=== PATIENT | female | born 1980 | race Caucasian/White ===

== ENCOUNTER 2020-09-27 20:32 | Emergency (ER) | payer OTHER, SELFPAY ==
--- NOTE | ~2020-09-27 | US_ITS ---
EXAMINATION: US VENOUS ULTRASOUND WITH DOPPLER LOWER EXTREMITY, LEFT CLINICAL INFORMATION: Increased swelling with calf pain. COMPARISON: None TECHNIQUE: Ultrasound of the deep veins is performed from the hip to the calf with compression sonography and color and pulse Doppler assessment. Spectral analysis with color-flow imaging is performed. FINDINGS: There is normal venous compression and respiratory variation and augmented flow. The visualized common femoral vein, superficial femoral vein, profunda femoral vein, popliteal vein, and the trifurcation region shows no evidence of deep venous thrombosis. There is no significant popliteal fossa cyst. If the patient's symptoms persist, followup ultrasound in 5 days 7 days might be of value to exclude proximal propagation from a non-visualized calf vein. US/US venous duplex LE LT IMPRESSION: No DVT demonstrated in the left lower extremity.
--- NOTE | ~2020-09-27 | XR_ITS ---
EXAMINATION: XR CHEST CLINICAL INFORMATION: Hypertension COMPARISON: None TECHNIQUE: Frontal view of the chest was obtained. FINDINGS: Low lung volumes. No focal consolidation or mass. Normal pulmonary vascularity. No pleural effusion or pneumothorax. Normal heart size given the low lung volumes and AP portable technique. No acute osseous abnormality. XR/XR chest 1V IMPRESSION: Low lung volumes.
[2020-09-27 20:32] VITALS: BP 203/104; PULSE 101; RESP 20; TEMP 37.1; O2SAT 97; BMI 47.7
[2020-09-27 20:41] VITALS: BP 245/108
[2020-09-27 20:42] VITALS: BP 203/104
[2020-09-27 21:14] LABS: MANUAL DIFF FLAG NO
[2020-09-27 21:16] LABS: Basophils Percent Auto 0.3 % (0-2); Eosinophils Percent Auto 0.1 % (0-4); Hematocrit 42.7 % (37-47); Hemoglobin 14.3 g/dl (12.0-16.0); Imm Gran Abs Auto 0.05 X10*3/uL (0.00-0.03); Imm Gran Pct Auto 0.6 % (0.0-0.4); Lymphocytes Absolute Auto 2.9 X10*3/uL (1.2-4.9); Lymphocytes Percent Auto 33.8 % (20-40); Mean Corpuscular HGB Conc 33.5 g/dl (31.0-35.0); Mean Corpuscular Hemoglobin 27.3 pg (27.0-33.0); Mean Corpuscular Volume 81.6 fL (80-98); Mean Platelet Volume 9.8 fL (9.4-12.3); Monocytes Absolute Auto 0.7 X10*3/uL (0.1-1.2); Monocytes Percent Auto 7.6 % (2-11); Neutrophils Percent Auto 57.6 % (45-73); Platelet Count 247 X10*3/uL (160-400); Red Blood Count 5.23 X10*6/uL (4.20-5.50); Red Cell Distribution Width 13.2 % (11.0-16.0); White Blood Count 8.7 X10*3/uL (4.8-10.8)
--- NOTE | 2020-09-27 21:20 | ECG_ITS ---
Test Reason : HIGH BLOOD PRESSURE Blood Pressure : / mmHG Vent. Rate : 086 BPM Atrial Rate : 086 BPM P-R Int : 160 ms QRS Dur : 088 ms QT Int : 372 ms P-R-T Axes : 041 -14 010 degrees QTc Int : 445 ms Normal sinus rhythm Moderate voltage criteria for LVH, may be normal variant Borderline ECG No previous ECGs available Referred By: Mere Sanchez Electronically Signed By:JERO HARGROVE MD
--- NOTE | 2020-09-27 21:28 | ED_ITS ---
HPI - General Adult General Chief complaint: General Medical Stated complaint: High blood pressure Time Seen by Provider: 09/27/20 21:20 Source: patient Mode of arrival: ambulatory History of Present Illness HPI narrative: 40-year-old female presents as a referral from Urgent Care after she was seen for pain tingling into left lower extremity for 4 days with increased swelling but denies any recent travel, palpitations, fevers and report s that she was short of breath at baseline and noted at that time to have an elevated blood pressure for which she denies any associated chest pain/visual disturbances/speech disturbances. She states that has been long time since she seen a primary care provider because she was involved with caring for her mother. Related Data Previous Rx's Medication Instructions Recorded hydrochlorothiazide 25 mg PO DAILY 30 Days #30 tab 09/27/20 Allergies Allergy/AdvReac Type Severity Reaction Status Date / Time codeine Allergy Intermediate Hives Verified 09/27/20 20:46 acetaminophen [Tylenol] Allergy Unknown Unknown Verified 09/27/20 20:45 Review of Systems Review of Systems: Pertinent positives and negatives as stated in HPI 10 point review systems is otherwise negative. PMFSH Past Medical History Source: nursing notes reviewed Medical History Anxiety Depression Hypertension Obesity PTSD (post-traumatic stress disorder) Sciatica Social History Social History Advance Directives: No Advance Directives Information Provided: No Physical Exam Vital Signs: Vital Signs: Last Vital Signs Temp 97.9 F 09/27/20 22:28 Pulse 87 09/27/20 22:28 Resp 18 09/27/20 22:28 BP 186/114 H 09/27/20 22:28 Pulse Ox 98 09/27/20 22:28 Body Mass Index 47.7 VITAL SIGNS: Reviewed. GENERAL: Well developed, well nourished, in no acute distress. HEAD: Normocephalic/atraumatic, EYES: PERRLA, EOMI NOSE: Nares patent bilateral OROPHARYNX: no oral lesions noted, posterior pharynx clear NECK: Supple, no adenopathy LUNGS: Normal breath sounds. No adventitious sounds or accessory muscle use. SpO2<97> CARDIOVASCULAR: Regular rate and rhythm without noted murmurs ABDOMEN: Obese, Soft, non-tender, non-distended with bowel sounds. MUSCULOSKELETAL: No tenderness, deformities, or effusions noted on gross inspection. EXTREMITIES: Slight observed increase in lower extremity circumference on the left when compared to right, posterior calf discomfort on palpation, no palpable cords, no erythema NEUROLOGIC: Alert and oriented x 4. Strength and sensation to light touch were grossly intact x 4. Course Course Course Narrative: 40-year-old female with history and clinical presentation suggestive possible DVT, low clinical suspicion for PE and hypertension secondary to lack of medications. No evidence to suggest end-organ damage from hypertension at this time. Review of all investigations there are no acute findings, specifically no evidence of DVT and left lower extremity and likely an IT band versus possible sciatica given location pain. All results and findings were discussed with the patient bedside and on re-evaluation of blood pressure after receiving hydrochlorothiazide 25 mg there is noted improvement. Patient will be discharged with a prescription for hydrochlorothiazide and strict instructions to follow up with the primary care provider within the next 1-2 days for further outpatient management. Medical Decision Making Lab Data Result diagrams: 09/27/20 21:05 09/27/20 21:05 Labs: Lab Results 09/27/20 09/27/20 09/27/20 Range/Units 21:05 21:05 21:05 WBC 8.7 (4.8-10.8) X10*3/uL RBC 5.23 (4.20-5.50) X10*6/uL Hgb 14.3 (12.0-16.0) g/dl Hct 42.7 (37-47) % MCV 81.6 (80-98) fL MCH 27.3 (27.0-33.0) pg MCHC 33.5 (31.0-35.0) g/dl RDW 13.2 (11.0-16.0) % Plt Count 247 (160-400) X10*3/uL MPV 9.8 (9.4-12.3) fL Immature Gran % (Auto) 0.6 H (0.0-0.4) % Neut % (Auto) 57.6 (45-73) % Lymph % (Auto) 33.8 (20-40) % [place] % (Auto) 7.6 (2-11) % Eos % (Auto) 0.1 (0-4) % Baso % (Auto) 0.3 (0-2) % Lymph # (Auto) 2.9 (1.2-4.9) X10*3/uL [place] # (Auto) 0.7 (0.1-1.2) X10*3/uL Eos # (Auto) 0.0 (0.0-0.4) X10*3/uL Baso # (Auto) 0.0 (0.0-0.2) X10*3/uL Abs Immat Gran (auto) 0.05 H (0.00-0.03) X10*3/uL Absolute Neuts (auto) 5.0 (2.0-8.3) X10*3/uL Absolute Nucleated RBC 0.000 (0.0-0.012) X10*3/uL Nucleated RBC % (auto) 0.0 (0.0-0.2) /100WBC Hold Purple Top SEE NOTE Hold Blue Top Sodium 138 (135-145) mmol/L Potassium 4.4 (3.3-5.1) mmol/L Chloride 103 (96-108) mmol/L Carbon Dioxide 27 (22-29) mmol/L Anion Gap 12 (12-20) BUN 14 (9-16) mg/dL Creatinine 1.25 (0.5-1.4) mg/dL Estim Creat Clear Calc 85.4 Estimated GFR 47 Random Glucose 202 H (60-115) mg/dL Calcium 9.6 (8.4-10.2) mg/dL Magnesium 1.8 (1.6-2.6) mg/dL Total Bilirubin 0.3 (0.0-1.0) mg/dL Direct Bilirubin < 0.2 (0.0-0.5) mg/dL AST 18 (5-31) U/L ALT 20 (0-31) U/L Alkaline Phosphatase 58 (39-117) U/L Troponin I High Sens (<3.5-17.0) ng/L Total Protein 6.7 (6.5-8.0) g/dL Albumin 4.0 (3.5-5.0) g/dL Urine Test (NEGATIVE) 09/27/20 09/27/20 09/27/20 Range/Units 21:05 21:05 21:37 WBC (4.8-10.8) X10*3/uL RBC (4.20-5.50) X10*6/uL Hgb (12.0-16.0) g/dl Hct (37-47) % MCV (80-98) fL MCH (27.0-33.0) pg MCHC (31.0-35.0) g/dl RDW (11.0-16.0) % Plt Count (160-400) X10*3/uL MPV (9.4-12.3) fL Immature Gran % (Auto) (0.0-0.4) % Neut % (Auto) (45-73) % Lymph % (Auto) (20-40) % [place] % (Auto) (2-11) % Eos % (Auto) (0-4) % Baso % (Auto) (0-2) % Lymph # (Auto) (1.2-4.9) X10*3/uL [place] # (Auto) (0.1-1.2) X10*3/uL Eos # (Auto) (0.0-0.4) X10*3/uL Baso # (Auto) (0.0-0.2) X10*3/uL Abs Immat Gran (auto) (0.00-0.03) X10*3/uL Absolute Neuts (auto) (2.0-8.3) X10*3/uL Absolute Nucleated RBC (0.0-0.012) X10*3/uL Nucleated RBC % (auto) (0.0-0.2) /100WBC Hold Purple Top Hold Blue Top SEE NOTE Sodium (135-145) mmol/L Potassium (3.3-5.1) mmol/L Chloride (96-108) mmol/L Carbon Dioxide (22-29) mmol/L Anion Gap (12-20) BUN (9-16) mg/dL Creatinine (0.5-1.4) mg/dL Estim Creat Clear Calc Estimated GFR Random Glucose (60-115) mg/dL Calcium (8.4-10.2) mg/dL Magnesium (1.6-2.6) mg/dL Total Bilirubin (0.0-1.0) mg/dL Direct Bilirubin (0.0-0.5) mg/dL AST (5-31) U/L ALT (0-31) U/L Alkaline Phosphatase (39-117) U/L Troponin I High Sens < 3.5 (<3.5-17.0) ng/L Total Protein (6.5-8.0) g/dL Albumin (3.5-5.0) g/dL Urine Test NEGATIVE (NEGATIVE) ECG Data Attestation: I personally reviewed and interpreted this ECG as follows: Prior ECG tracings: not available for review Interpretation: Normal sinus rhythm, HR-86, no evidence of acute ischemia, ME/QRS/QTC are within normal limits. Discharge Plan Discharge Clinical Impression: Hypertension, Iliotibial band syndrome affecting left lower leg Patient Disposition: Home, Self-Care Instructions: Low-Sodium Diet (ED), Hypertension (ED), Iliotibial Band Syndrome (ED) Additional Instructions: IT band: 1. Tylenol 1000 mg, orally, every 6 hours as needed for pain control. Do not exceed 4000 mg within 24 hours. 2. Ibuprofen 400 mg, orally with milk or food, every 6 hours as needed for pain control. 3. Recommend reviewing IT band stretching exercises that may provide additional symptom relief. Hypertension: 1. You have been provided with a 1 month supply of hydrochlorothiazide 25 mg to be taken as directed on the outside packaging. 2. Please follow-up with your primary care provider for re-evaluation in the next 1-2 days. Do not hesitate to return to the emergency department should you develop any acute worsening of your symptoms. Prescriptions: New hydrochlorothiazide 25 mg tablet 25 mg PO DAILY 30 Days Qty: 30 RF: 0 Referrals: Physician,None [Primary Care Provider] - 2 days
[2020-09-27] MEDS: hydroCHLOROthiazide 25 MG TABLET PO (21:36)
[2020-09-27 21:41] LABS: Alanine Aminotransferase 20 U/L (0-31); Alkaline Phosphatase 58 U/L (39-117); Anion Gap 12 (12-20); Aspartate Amino Transferase 18 U/L (5-31); Bilirubin Direct < 0.2 mg/dL (0.0-0.5); Bilirubin Total 0.3 mg/dL (0.0-1.0); Blood Urea Nitrogen 14 mg/dL (9-16); Calcium 9.6 mg/dL (8.4-10.2); Carbon Dioxide 27 mmol/L (22-29); Chloride 103 mmol/L (96-108); Creatinine Clr Calc Pharmacy 85.4; Estimated Glomerular Filt Rate 47; Glucose Random 202 mg/dL (60-115); Potassium 4.4 mmol/L (3.3-5.1); Sodium 138 mmol/L (135-145); Total Protein 6.7 g/dL (6.5-8.0)
[2020-09-27 21:53] LABS: UPreg QC Valid YES; Urine Pregnancy NEGATIVE (NEGATIVE)
[2020-09-27 21:57] LABS: Magnesium 1.8 mg/dL (1.6-2.6)
[2020-09-27 22:03] LABS: Troponin-I High Sensitivity < 3.5 ng/L (<3.5-17.0)
[2020-09-27 22:28] VITALS: BP 186/114; PULSE 87; RESP 18; TEMP 36.6; O2SAT 98
== END 2020-09-27 23:07 | disposition home or self-care (01) ==
PROVIDERS: Emergency Provider Student in an Organized Health Care Education/Training Program
DX: I10 Essential (primary) hypertension (principal); M76.32 Iliotibial band syndrome, left leg; M79.662 Pain in left lower leg
CPT/HCPCS: 36415; 71045; 80053; 80076; 81025; 82248; 83735; 84484; 85025; 93005; 93971; 99284

== ENCOUNTER 2022-01-02 09:34 | Emergency (ER) | payer OTHER, SELFPAY ==
[2022-01-02 09:44] VITALS: BP 218/120; PULSE 100; RESP 19; TEMP 36.6; O2SAT 98; BMI 47.2
[2022-01-02 11:17] LABS: Appearance Urine HAZY; Color Urine YELLOW; Glucose Urine UA 500 MG/DL (NEG); Leukocyte Esterase Urine NEG (NEG); Nitrite Urine NEG (NEG); Specific Gravity - Urine >= 1.030 (1.005-1.025); Urine Blood NEG (NEG); Urine Ketones NEG (NEG); Urine Protein NEG (NEG-TRACE)
[2022-01-02 11:20] LABS: UPreg QC Valid YES; Urine Pregnancy NEGATIVE (NEGATIVE)
[2022-01-02 12:03] LABS: Glucose, Whole Blood 304 mg/dL (60-115)
[2022-01-02] MEDS: lisinopriL 10 MG TABLET PO (12:25)
[2022-01-02] MEDS: hydroCHLOROthiazide 12.5 MG TABLET PO (12:25)
[2022-01-02] MEDS: metFORMIN HCl 500 MG TABLET PO ×2 (12:25→14:48)
[2022-01-02] MEDS: 0.9 % Sodium Chloride 1,000 ML 999 ML IVCONT (12:37)
[2022-01-02 12:42] LABS: MANUAL DIFF FLAG NO
[2022-01-02 12:44] LABS: Basophils Absolute Auto 0.1 X10*3/uL (0.0-0.2); Basophils Percent Auto 0.6 % (0-2); Eosinophils Absolute Auto 0.1 X10*3/uL (0.0-0.4); Eosinophils Percent Auto 1.8 % (0-4); Hematocrit 42.9 % (37.0-47.0); Hemoglobin 14.7 g/dl (12.0-16.0); Imm Gran Abs Auto 0.03 X10*3/uL (0.00-0.03); Imm Gran Pct Auto 0.4 % (0.0-0.4); Lymphocytes Absolute Auto 2.4 X10*3/uL (1.2-4.9); Lymphocytes Percent Auto 30.1 % (20-40); Mean Corpuscular HGB Conc 34.3 g/dl (31.0-35.0); Mean Corpuscular Hemoglobin 27.5 pg (27.0-33.0); Mean Corpuscular Volume 80.3 fL (80.0-98.0); Mean Platelet Volume 9.8 fL (9.4-12.3); Monocytes Absolute Auto 0.6 X10*3/uL (0.1-1.2); Monocytes Percent Auto 7.6 % (2-11); Neutrophils Absolute Auto 4.7 x10*3/uL (2.0-8.3); Neutrophils Percent Auto 59.5 % (45-73); Platelet Count 247 X10*3/uL (160-400); Red Blood Count 5.34 X10*6/uL (4.20-5.50); Red Cell Distribution Width 12.8 % (11.0-16.0); White Blood Count 7.9 X10*3/uL (4.8-10.8)
[2022-01-02 12:50] LABS: INTERNATIONAL NORM RATIO 0.9 (0.9-1.1); Prothrombin Time 10.1 SEC (10.0-13.1)
[2022-01-02 12:59] LABS: Acetone, serum QL Negative (Negative)
--- NOTE | 2022-01-02 13:04 | ED_ITS ---
HPI - Female Genitourinary General Chief complaint: Urogenital-Female Stated complaint: vaginal issues Time Seen by Provider: 01/02/22 11:05 Source: patient Mode of arrival: ambulatory Limitations: no limitations History of Present Illness HPI Narrative: 41-year-old female presenting to the ED with complaints of UTI symptoms for over a week which include burning upon urination with itchiness. Reports that she wa s on an antibiotic 3 days ago for UTI although no symptomatic relief. She reports that she is on blood pressure medication 10 mg of lisinopril and 12.5 mg of hydrochlorothiazide although she did not take this morning that is why her blood pressure is high. She also reports that she did not take her metformin this morning. She reports that she normally does not take her blood glucose level due to her primary care provider told her she did not have to. Patient has a past medical history of anxiety, depression, obesity, PTSD, hypertension, sciatica and diabetes. She denies being on any insulin. She denies a headache, fevers, dizziness, change in vision, nausea/vomiting, chest pain, shortness of breath, dyspnea on exertion, orthopnea, palpitations, paresthesias, abdominal pain, back pain, flank pain, hematuria, abnormal vaginal discharge, lesions/rash to vaginal rectal area, thoughts of STD's, diarrhea, constipation, black or bloody stools, or any other symptoms complaints or concerns at this time. MD elicited complaint: dysuria, UTI and genital itching Onset (ago): week(s) (1) Location of symptoms: external genitalia and vaginal Severity: moderate Female Urogenital Radiation: Non-Radiating Consistency: constant Vaginal discharge: none Vaginal bleeding: none Urinary symptoms: Dysuria, Urgency and Frequency Exacerbating factors: urination Relieving factors: none Associated symptoms: denies other symptoms Treatment prior to arrival: none Sexual activity: Yes Patient : No Related Data Previous Rx's Medication Instructions Recorded hydrochlorothiazide 25 mg tablet 25 mg PO DAILY 30 days #30 tabs 09/27/20 alcohol swabs (Alcohol Prep Pads) 1 pad topical TID glucose 01/02/22 monitoring before meals or twice daily #200 ea blood sugar diagnostic (FreeStyle #100 ea 01/02/22 Lite Strips) blood-glucose meter (FreeStyle #1 ea 01/02/22 Lite Meter kit) fluconazole 150 mg tablet 150 mg PO Q3D Candidiasis 01/02/22 (Diflucan) vaginitis infection 2 doses #2 tabs lancets 28 gauge (FreeStyle #100 ea 01/02/22 Lancets) metformin 1,000 mg tablet 1,000 mg PO BID diabetes #60 tabs 01/02/22 Allergies Allergy/AdvReac Type Severity Reaction Status Date / Time codeine Allergy Intermediate Hives Verified 09/27/20 20:46 acetaminophen [Tylenol] Allergy Unknown Unknown Verified 09/27/20 20:45 Review of Systems Review of Systems: Constitutional : No Fever, No Chills ENT/Mouth : No sore throat, No Rhinorrhea Eyes: No Eye Pain, No Redness Cardiovascular : No Chest Pain, No SOB Respiratory : No Cough, No Sputum, No Wheezing Gastrointestinal : No Nausea, No Vomiting, No Diarrhea, positive abdominal pain, Genitourinary : + Dysuria, + Urinary Frequency/urgency, + vaginal itching, No pelvic pain, No irregular bleeding Musculoskeletal : No Myalgias Skin : No rash Neuro : No Weakness, No Headache Psych : No Anxiety/Panic, No Depression Heme/Lymph: No bruising, No Lymphadenopathy Endocrine : + Polyuria, + Polydipsia Yes all other systems are reviewed and are negative [facility] Past Medical History Attestation statement: The following information was validated with the patient. Source: old records reviewed and nursing notes reviewed Medical History Anxiety Depression Hypertension Obesity PTSD (post-traumatic stress disorder) Sciatica Social History Social History Advance Directives: No Advance Directives Information Provided: No Patient : No Physical Exam Vital Signs: Vital Signs: Last Vital Signs Temp 98 F 01/02/22 09:44 Pulse 96 01/02/22 14:30 Resp 18 01/02/22 14:30 BP 161/89 H 01/02/22 14:30 Pulse Ox 99 01/02/22 14:30 O2 Del Method 01/02/22 14:30 BMI result Body Mass Index 47.2 vital signs have been reviewed as normal and appeared to be correct. Blood pr essure 218/120. Heart rate normal. Respiration rate normal. Temperature normal. Oxygen saturation normal. Appearance: Alert. Oriented X3. No acute distress. Head: Normal external exam. Normocephalic. Atraumatic. Eyes: PERRLA. EOMI. Conjunctiva and sclera normal. Eyelids normal. ENT: Pharynx normal. Uvula midline. Moist mucous membranes. No trismus noted. No drooling noted. No muffled voice noted. Neck: Normal inspection. Neck supple. FROM. No adenopathy. Thyroid Normal. No meningeal signs. No neck mass noted. CVS: Normal heart rate and rhythm. Heart sound normal. No murmurs noted. Pulses normal throughout. Respiratory: No respiratory distress. Painless inspiration. Breath sounds normal. No wheezes/rales/rhonchi noted. No accessory muscle usage noted or decreased air movement noted. Abdomen: Soft and nontender. Bowel sounds normal in all 4 quadrants. No distention noted. No organomegaly noted. No visible injury noted. : Supervised by MARIO Pena. Patient is noted to have valvular erythema/edema with superficial excoriations and cottage cheese like nonodorous discharge consistent with candidiasis vaginitis. No lacerations or lesions no dea. Patient has pain with speculum exam and discharge seen above otherwise no other acute processes noted. No foreign bodies noted. No vaginal laceration/lesions or active bleeding noted. No tissue present in vagina. No vaginal mass noted. No vaginal swelling noted. Normal appearance of cervix. Normal palpation of cervix. Cervical os is closed. No cervical lesion/mass. No Bartholin cyst noted. No cervical motion tenderness noted. Negative chandelier sign. Normal bimanual exam. Uterine size normal. Bladder normal to palpation. Uterine consistency normal. Normal cervical palpation. Uterine mobility normal. Uterine shape normal. Normal adnexa. Normal rectovaginal exam. Back: No CVA tenderness. Full range of motion noted. Skin: Skin warm and dry. Normal skin color. Normal skin turgor. No rashes/lesions/lacerations noted. Extremities: No lower extremity edema. Extremities exhibit normal range of motion. Extremities nontender. Neuro: Oriented X 3. No motor deficit. No sensory deficit. Reflexes normal. Course Course Course Narrative: 11:30am - 41-year-old female presenting to the ED with complaints of UTI symptoms for over a week which include burning upon urination with itchiness. Reports that she was on an antibiotic 3 days ago for UTI although no symptomatic relief. She reports that she is on blood pressure medication 10 mg of lisinopril and 12.5 mg of hydrochlorothiazide although she did not take this morning that is why her blood pressure is high. She also reports that she did not take her metformin this morning. She reports that she normally does not take her blood glucose level due to her primary care provider told her she did not have to. Patient has a past medical history of anxiety, depression, obesity, PTSD, hypertension, sciatica and diabetes. She denies being on any insulin. Plan: Patient had a UA in the waiting room and UA negative for UTI negative for although patient is noted to have 500 of glucose therefore at this time due to patient not taking her metformin will give her 500 mg of metformin and will check a POC and re-evaluate. Reevaluation(s) Reevaluation #1: - patient's POC 304 therefore at this time a line was placed and CBC/chemistry was order and patient's blood glucose level was elevated otherwise all other labs are within normal limits. Her hemoglobin A1c is 9.0. Acetone level is negative. - therefore at this time will treat for candidiasis vaginitis. Will send the patient home with glucose monitoring and strips along with alcohol pads. And I explained to the patient that she should check her blood sugars before every meal or at least twice a day. I also discussed this case with Dr. Sanchez and she agrees with my plan and she also recommended increasing the patient's metformin from 500 b.i.d. to a 1000 b.i.d.. I discussed this with the patient and she is comfortable about this. Will DC home with endocrinology referral and instructions to follow with PCP and to return if any new or worsening symptoms I also educated the patient on diet and exercise and the importance of taking her blood pressure medication and her diabetes medication every day so her blood pressure is not high and her blood sugars not high. She understands agrees with the plan. Time: 14:17 MDM - Female Genitourinary Medical Records Attestation: I reviewed the patient's medical records. Lab Data Attestation: I reviewed the patient's lab results. Result diagrams: 01/02/22 12:33 01/02/22 12:33 Labs: Lab Results 01/02/22 01/02/22 01/02/22 Range/Units 11:04 11:04 11:58 WBC (4.8-10.8) X10*3/uL RBC (4.20-5.50) X10*6/uL Hgb (12.0-16.0) g/dl Hct (37.0-47.0) % MCV (80.0-98.0) fL MCH (27.0-33.0) pg MCHC (31.0-35.0) g/dl RDW (11.0-16.0) % Plt Count (160-400) X10*3/uL MPV (9.4-12.3) fL Immature Gran % (Auto) (0.0-0.4) % Neut % (Auto) (45-73) % Lymph % (Auto) (20-40) % [place] % (Auto) (2-11) % Eos % (Auto) (0-4) % Baso % (Auto) (0-2) % Lymph # (Auto) (1.2-4.9) X10*3/uL [place] # (Auto) (0.1-1.2) X10*3/uL Eos # (Auto) (0.0-0.4) X10*3/uL Baso # (Auto) (0.0-0.2) X10*3/uL Abs Immat Gran (auto) (0.00-0.03) X10*3/uL Absolute Neuts (auto) (2.0-8.3) x10*3/uL Absolute Nucleated RBC (0.0-0.012) X10*3/uL Nucleated RBC % (auto) (0.0-0.2) /100WBC PT (10.0-13.1) SEC INR (0.9-1.1) Sodium (135-145) mmol/L Potassium (3.3-5.1) mmol/L Chloride (96-108) mmol/L Carbon Dioxide (22-29) mmol/L Anion Gap (12-20) BUN (9-16) mg/dL Creatinine (0.5-1.4) mg/dL Estim Creat Clear Calc Estimated GFR POC Glucose 304 H (60-115) mg/dL Random Glucose (60-115) mg/dL Estimat Average Glucose mg/dL Hemoglobin A1c % % Calcium (8.4-10.2) mg/dL Magnesium (1.6-2.6) mg/dL Total Bilirubin (0.0-1.0) mg/dL AST (5-31) U/L ALT (0-31) U/L Alkaline Phosphatase (39-117) U/L Total Protein (6.5-8.0) g/dL Albumin (3.5-5.0) g/dL Urine Color YELLOW Urine Appearance HAZY Urine pH 6.0 (5.0-8.0) Ur Specific [place] >= 1.030 H (1.005-1.025) Urine Protein NEG (NEG-TRACE) MG/DL Urine Glucose (UA) 500 H (NEG) MG/DL Urine Ketones NEG (NEG) MG/DL Urine Blood NEG (NEG) Urine Nitrite NEG (NEG) Ur Leukocyte Esterase NEG (NEG) Urine Test NEGATIVE (NEGATIVE) Acetone, Qual (Negative) 01/02/22 01/02/22 01/02/22 Range/Units 12:33 12:33 12:33 WBC 7.9 (4.8-10.8) X10*3/uL RBC 5.34 (4.20-5.50) X10*6/uL Hgb 14.7 (12.0-16.0) g/dl Hct 42.9 (37.0-47.0) % MCV 80.3 (80.0-98.0) fL MCH 27.5 (27.0-33.0) pg MCHC 34.3 (31.0-35.0) g/dl RDW 12.8 (11.0-16.0) % Plt Count 247 (160-400) X10*3/uL MPV 9.8 (9.4-12.3) fL Immature Gran % (Auto) 0.4 (0.0-0.4) % Neut % (Auto) 59.5 (45-73) % Lymph % (Auto) 30.1 (20-40) % [place] % (Auto) 7.6 (2-11) % Eos % (Auto) 1.8 (0-4) % Baso % (Auto) 0.6 (0-2) % Lymph # (Auto) 2.4 (1.2-4.9) X10*3/uL [place] # (Auto) 0.6 (0.1-1.2) X10*3/uL Eos # (Auto) 0.1 (0.0-0.4) X10*3/uL Baso # (Auto) 0.1 (0.0-0.2) X10*3/uL Abs Immat Gran (auto) 0.03 (0.00-0.03) X10*3/uL Absolute Neuts (auto) 4.7 (2.0-8.3) x10*3/uL Absolute Nucleated RBC 0.000 (0.0-0.012) X10*3/uL Nucleated RBC % (auto) 0.0 (0.0-0.2) /100WBC PT 10.1 (10.0-13.1) SEC INR 0.9 (0.9-1.1) Sodium 138 (135-145) mmol/L Potassium 4.4 (3.3-5.1) mmol/L Chloride 102 (96-108) mmol/L Carbon Dioxide 23 (22-29) mmol/L Anion Gap 17 (12-20) BUN 11 (9-16) mg/dL Creatinine 0.94 (0.5-1.4) mg/dL Estim Creat Clear Calc 111.8 Estimated GFR > 60 POC Glucose (60-115) mg/dL Random Glucose 313 H (60-115) mg/dL Estimat Average Glucose mg/dL Hemoglobin A1c % % Calcium 9.8 (8.4-10.2) mg/dL Magnesium 1.7 (1.6-2.6) mg/dL Total Bilirubin 0.3 (0.0-1.0) mg/dL AST 24 (5-31) U/L ALT 24 (0-31) U/L Alkaline Phosphatase 54 (39-117) U/L Total Protein 7.0 (6.5-8.0) g/dL Albumin 4.1 (3.5-5.0) g/dL Urine Color Urine Appearance Urine pH (5.0-8.0) Ur Specific [place] (1.005-1.025) Urine Protein (NEG-TRACE) MG/DL Urine Glucose (UA) (NEG) MG/DL Urine Ketones (NEG) MG/DL Urine Blood (NEG) Urine Nitrite (NEG) Ur Leukocyte Esterase (NEG) Urine Test (NEGATIVE) Acetone, Qual Negative (Negative) 01/02/22 01/02/22 Range/Units 12:33 14:33 WBC (4.8-10.8) X10*3/uL RBC (4.20-5.50) X10*6/uL Hgb (12.0-16.0) g/dl Hct (37.0-47.0) % MCV (80.0-98.0) fL MCH (27.0-33.0) pg MCHC (31.0-35.0) g/dl RDW (11.0-16.0) % Plt Count (160-400) X10*3/uL MPV (9.4-12.3) fL Immature Gran % (Auto) (0.0-0.4) % Neut % (Auto) (45-73) % Lymph % (Auto) (20-40) % [place] % (Auto) (2-11) % Eos % (Auto) (0-4) % Baso % (Auto) (0-2) % Lymph # (Auto) (1.2-4.9) X10*3/uL [place] # (Auto) (0.1-1.2) X10*3/uL Eos # (Auto) (0.0-0.4) X10*3/uL Baso # (Auto) (0.0-0.2) X10*3/uL Abs Immat Gran (auto) (0.00-0.03) X10*3/uL Absolute Neuts (auto) (2.0-8.3) x10*3/uL Absolute Nucleated RBC (0.0-0.012) X10*3/uL Nucleated RBC % (auto) (0.0-0.2) /100WBC PT (10.0-13.1) SEC INR (0.9-1.1) Sodium (135-145) mmol/L Potassium (3.3-5.1) mmol/L Chloride (96-108) mmol/L Carbon Dioxide (22-29) mmol/L Anion Gap (12-20) BUN (9-16) mg/dL Creatinine (0.5-1.4) mg/dL Estim Creat Clear Calc Estimated GFR POC Glucose 288 H (60-115) mg/dL Random Glucose (60-115) mg/dL Estimat Average Glucose 212 mg/dL Hemoglobin A1c % 9.0 % Calcium (8.4-10.2) mg/dL Magnesium (1.6-2.6) mg/dL Total Bilirubin (0.0-1.0) mg/dL AST (5-31) U/L ALT (0-31) U/L Alkaline Phosphatase (39-117) U/L Total Protein (6.5-8.0) g/dL Albumin (3.5-5.0) g/dL Urine Color Urine Appearance Urine pH (5.0-8.0) Ur Specific [place] (1.005-1.025) Urine Protein (NEG-TRACE) MG/DL Urine Glucose (UA) (NEG) MG/DL Urine Ketones (NEG) MG/DL Urine Blood (NEG) Urine Nitrite (NEG) Ur Leukocyte Esterase (NEG) Urine Test (NEGATIVE) Acetone, Qual (Negative) Critical Care Time Critical Care Time Critical Care Time: Yes Total Critical Care Time: 60 Attestation: I personally attest to this time spent taking care of the patient Discharge Plan Discharge Clinical Impression: Acute hyperglycemia, BP (high blood pressure), Diabetes, Suzi vaginitis Patient Disposition: Home, Self-Care Instructions: Diabetic Hyperglycemia (ED) Additional Instructions: You have pending lab results if any are positive you will be contacted. Prescriptions: New (DME) blood-glucose meter [FreeStyle Lite Meter] Kit See Rx Instructions .Route Qty: 1 0RF Rx Instructions: As directed (DME) FreeStyle Lite Strips Strip See Rx Instructions .Route Qty: 100 0RF Rx Instructions: As directed alcohol swabs [Alcohol Prep Pads] Pads, Medicated 1 pad topical TID Qty: 200 0RF (DME) lancets [FreeStyle Lancets] 28 gauge misc See Rx Instructions .Route Qty: 100 0RF Rx Instructions: As directed fluconazole [Diflucan] 150 mg tablet 150 mg PO Q3D 0 Days Qty: 2 1RF Rx Instructions: may repeat second dose 72 hrs after first dose if symptoms persist metformin 1,000 mg tablet 1,000 mg PO BID Qty: 60 0RF No Action hydrochlorothiazide 25 mg tablet 25 mg PO DAILY 30 Days Qty: 30 0RF Referrals: Chiara Lawson, [facility], [employer] [facility], [employer] [Primary Care Provider] - 2 days
[2022-01-02 13:09] LABS: Alanine Aminotransferase 24 U/L (0-31); Albumin Level 4.1 g/dL (3.5-5.0); Alkaline Phosphatase 54 U/L (39-117); Anion Gap 17 (12-20); Aspartate Amino Transferase 24 U/L (5-31); Bilirubin Total 0.3 mg/dL (0.0-1.0); Blood Urea Nitrogen 11 mg/dL (9-16); Calcium 9.8 mg/dL (8.4-10.2); Carbon Dioxide 23 mmol/L (22-29); Chloride 102 mmol/L (96-108); Creatinine Clr Calc Pharmacy 111.8; Estimated Glomerular Filt Rate > 60; Glucose Random 313 mg/dL (60-115); Magnesium 1.7 mg/dL (1.6-2.6); Potassium 4.4 mmol/L (3.3-5.1); Sodium 138 mmol/L (135-145)
[2022-01-02] MEDS: Acetaminophen 325 MG TABLET 975 MG PO (13:27)
[2022-01-02] MEDS: Fluconazole 150 MG TABLET PO (13:28)
[2022-01-02 13:35] LABS: Estimated Average Glucose 212 mg/dL
[2022-01-02 14:30] VITALS: BP 161/89; PULSE 96; RESP 18; O2SAT 99
[2022-01-02 14:38] LABS: Glucose, Whole Blood 288 mg/dL (60-115)
[2022-01-02 17:51] LABS: CT PCR NOT DETECTED (Not Detect.); NG PCR NOT DETECTED (Not Detect.)
[2022-01-04 08:34] LABS: BV Int Neg Control Negative (Negative); BV Int Pos Control Positive (Positive)
== END 2022-01-02 14:57 | disposition home or self-care (01) ==
PROVIDERS: Physician Assistant Medical; Emergency Provider Student in an Organized Health Care Education/Training Program; PCP Registered Nurse
DX: N76.0 Acute vaginitis (principal); E11.65 Type 2 diabetes mellitus with hyperglycemia; I10 Essential (primary) hypertension; E66.9 Obesity, unspecified; Z68.42 Body mass index [BMI] 45.0-49.9, adult
CPT/HCPCS: 36415; 80053; 81003; 81025; 82009; 82947; 83036; 83735; 85025; 85610; 87480; 87491; 87510; 87591; 87660; 96360; 99284

== ENCOUNTER 2023-02-14 15:02 | Outpatient (AMB) | payer OTHER, SELFPAY ==
[2023-02-14 15:10] VITALS: BP 142/110; BMI 50.0
--- NOTE | 2023-02-14 15:10 | MHC.PC.OV ---
Vital Signs 02/14/23 15:10 02/14/23 16:28 Height 5 ft 7 in Weight 319 lb BMI 50.0 BP 142/110 H 140/100 H Blood Pressure Location Lt brachial Lt brachial Position Sitting Sitting Intake Visit Reasons: LEGAL INTERNSHIP/HTN, Diabetes , Asthma Intake Note: New patient establishing care/ HTN, DM, Asthma Advertising Sales Agent Required: No Accompanied by: Self / Same As Patient Allergies codeine Allergy (Intermediate, Verified 02/14/23 15:34) Hives metformin Adverse Reaction (Severe, Verified 02/14/23 15:42) Diarrhea Medication List - Last Reconciled 02/14/23 by Oliva Gonzalez MD No Known Home Meds Tobacco use date assessed: 02/14/23 Dental Screening Dental Screen Date: 02/14/23 Did you have a dental visit in the last 12 months?: No Did you have a dental problem in the last 6 months where you did not have access to dental care?: No Was dental information given to patient?: Yes HPI HPI Comments History of Present Illness Details This is a 42-year-old female with hypertension, diabetes, morbid obesity and moderate major depression that comes today to establish care. Blood pressure elevated and she has use hydrochlorothiazide with metoprolol in the past. Blood pressure will be recheck by nurse navigator in 3 weeks. I will start her on NURIS-inhibitor. A1c elevated and has try metformin causing severe diarrhea. I will start her on Trulicity once a week. Will be referred to Endocrinology. She is morbidly obese with a BMI of 50 and will be referred to weight management. She is interested in weight loss surgery. Has moderate major depression for over 2 weeks with anxiety and difficulty sleeping. I will start her on low-dose escitalopram. No chest pain or shortness of breath. [facility] Medical History (Updated 02/14/23 @ 16:00 by Oliva Gonzalez MD) PTSD (post-traumatic stress disorder) Anxiety Depression Sciatica Obesity Hypertension Surgical History History of cholecystectomy History of pilonidal cyst History of Family History (Updated 02/14/23 @ 15:44 by Oliva Gonzalez MD) Mother Dementia Hypertension COPD (chronic obstructive pulmonary disease) Asthma Mental health disorder Diabetes mellitus Father Renal failure Substance use disorder Social History (Updated 02/14/23 @ 15:45 by Oliva Gonzalez MD) Housing: House Alcohol intake: current Alcohol intake frequency: holidays/special occasions only Alcohol type: hard liquor Patient Tobacco Use Status: Never used Tobacco e-Cigarette/Vaping Use: Never Used Second Hand Smoke Exposure: No service: No Current occupational status: employed Current occupational exposures/hazards: No Cognitive needs: No Hearing needs: No Vision needs: Yes Questionnaire PHQ-9 Over the last 2 weeks, how often have you been bothered by any of the following problems? 1. Little interest or pleasure in doing things: more than half the days 2. Feeling down, depressed, or hopeless: more than half the days 3. Trouble falling or staying asleep, or sleeping too much: more than half the days 4. Feeling tired or having little energy: nearly every day 5. Poor appetite or overeating: more than half the days 6. Feeling bad about yourself - or that you are a failure or have let yourself or your family down: nearly every day 7. Trouble concentrating on things, such as reading the newspaper or watching television: nearly every day 8. Moving or speaking so slowly that other people could have noticed. Or the opposite - being so fidgety or restless that you have been moving around a lot more than usual: nearly every day 9. Thoughts that you would be better off or of hurting yourself in some way: not at all Total score: 20 Depression Screening Interpretation: Positive (no suicidal thoughts) Depression Screening Follow-up: Existing condition 40664 - PHQ-9 Billing: Yes Source: Developed by Drs. Billy Curiel, Sharri Jacobo, Ramsey Luis and colleagues, with an educational darleen from [employer]. Thrive Questionnaire Date Thrive assessed: 02/14/23 I am a: Patient What is your living situation today?: I have a steady place to live Within the past 12 months, did the food you bought not last and you didn't have the money to get more?: Never true Within the past 12 months, did you worry whether your food would run out before you got money to buy more?: Never true Do you have trouble paying for medicines?: No Do you have trouble getting transportation to medical appointments?: No Do you have trouble paying your heating and electricity bill?: No Do you have trouble taking care of your child, family member or friend?: No Do you have trouble with day-to-day activities such as bathing, preparing meals, shopping, managing finances, etc.?: No Are you currently unemployed and looking for a job?: No Are you interested in more education?: No Please select the resources that you would like help with: None Currently or been in a relationship where the following occur: no concerns reported AUDIT C Alcohol Use Questionnaire (AUDIT-C) 1. How often do you have a drink containing alcohol?: Monthly or less 2. How many drinks containing alcohol do you have on a typical day when you are drinking?: 1 or 2 3. How often do you have six or more drinks on one occasion?: Never Total Score: 1 Score Reviewed/Action Taken: No KEVIN-7 AMB Questionnaire KEVIN-7 Date KEVIN - 7 assessed: 02/14/23 Feeling nervous, anxious, or on edge: 3 = Nearly every day Not being able to stop or control worryin = More than half the days Worrying too much about different things: 3 = Nearly every day Trouble relaxin = Nearly every day Being so restless that it is hard to sit still: 2 = More than half the days Becoming easily annoyed or irritable: 3 = Nearly every day Feeling afraid as if something awful might happen: 3 = Nearly every day Total KEVIN-7 score (0-4 normal; 5-9 mild; 10-14 moderate; 15-21 severe): 19 Source: Developed by Drs. Billy Curiel, Sharri Jacobo, Ramsey Luis and colleagues, with an educational darleen from [employer]. KEVIN-7 Assessment Billing KEVIN-7 Assessment Tool: KEVIN-7 Assessment 57458 Review of Systems Const All systems reviewed & are unremarkable except as noted in HPI and below Eyes Reports no additional complaints, Denies change in vision and Denies other visual disturbances Card Denies chest pain at rest, Denies chest pain with activity, Denies edema, Denies irregular heart rhythm, Denies claudication, Denies dyspnea, Denies dyspnea on exertion, Denies orthopnea, Denies paroxysmal nocturnal dyspnea and Denies slow heart rate Resp Denies cough, Denies dyspnea and Denies dyspnea on exertion GI Denies abdominal pain, Denies change in bowel habits, Denies excessive flatus, Denies nausea and Denies vomiting Denies urinary incontinence, Denies urinary hesitancy and Denies urinary urgency Musc Denies abnormal gait, Denies atrophy, Denies deformity and Denies limited range of motion Skin/Breast Denies bleeding lesions, Denies changing lesions and Denies rash Neuro Denies abnormal gait and Denies lack of coordination Physical exam (Primary Care) Vital Signs: Last Vital Signs BP 142/110 H 02/14/23 15:10 BMI result Body Mass Index 50.0 Tobacco/Smoking Status: Tobacco use Status Tobacco use date assessed 02/14/23 02/14/23 15:22 Patient Tobacco Use Status Never used Tobacco 02/14/23 15:45 e-Cigarette/Vaping Use Never Used 02/14/23 15:45 PHQ-9: PHQ-9 Score PHQ-9: Total score 02/14/23 15:53 Depression Screening Interpretation: Positive (no suicidal thoughts) Depression Screening Follow-up: Existing condition Thrive Assessment: Date of Thrive Assessment Date Thrive assessed 02/14/23 02/14/23 15:22 Currently or been in a relationship where the following occur: no concerns reported Eyes General: appearance normal, both eyes and all related structures Eyelids: Yes eyelids normal Conjunctivae: conjunctivae normal Neck Neck: Yes normal visual inspection and Yes supple Resp Effort & Inspection: normal respiratory effort Auscultation: clear to auscultation bilaterally Cardio Jugular venous distension: no JVD Rate: regular rate Rhythm: regular rhythm Heart sounds: S1 normal heart sound present and S2 normal heart sound present Extrem General: Yes full ROM Results AMB Hemoglobin A1c AMB Hemoglobin A1c 10.8 % Last Edit by PEYTON Dawson on 02/14/23 15:54 Results Reviewed Results Reviewed: Laboratory Last Values Hgb A1c (Clinic) 10.8 % (4.0-6.0) H 02/14/23 15:46 Assessment and Plan Assessment & Plan (1) Diabetes: Code(s): E11.9 - Type 2 diabetes mellitus without complications Plan: Start Trulicity. A1c goal is equal or less than 7%. Referred to Endocrinology. (2) Hypertension: Code(s): I10 - Essential (primary) hypertension Plan: Start lisinopril. Blood pressure goal is equal or less than 130/80. Blood pressure will be recheck in 3 weeks by nurse navigator. (3) Morbid obesity with BMI of 50.0-59.9, adult: Code(s): E66.01 - Morbid (severe) obesity due to excess calories; Z68.43 - Body mass index [BMI] 50.0-59.9, adult Plan: Referred to weight management. (4) Moderate major depression: Code(s): F32.1 - Major depressive disorder, single episode, moderate Plan: Start escitalopram at bedtime. Orders: Orders AMB Hemoglobin A1c Today E11.9 - Type 2 diabetes mellitus without complications Lipid Panel Today E78.5 - Hyperlipidemia, unspecified Microalbumin, Random (w Creat) Today E11.9 - Type 2 diabetes mellitus without complications Comprehensive [place]. Panel Fast Today E11.9 - Type 2 diabetes mellitus without complications Thyroid Stimulating Hormone Today E66.01 - Morbid (severe) obesity due to excess calories, Z68.43 - Body mass index [BMI] 50.0-59.9, adult Referrals Medical Weight Management Referral E66.01 - Morbid (severe) obesity due to excess calories, Z68.43 - Body mass index [BMI] 50.0-59.9, adult Endocrinology Referral E11.9 - Type 2 diabetes mellitus without complications Medications: New dulaglutide (Trulicity) 0.75 mg (0.5 mL) subcut QWEEK 2.5 mL 6RF 30 days E11.9 - Type 2 diabetes mellitus without complications escitalopram oxalate 5 mg PO BEDTIME 30 tabs 2RF 30 days F32.1 - Major depressive disorder, single episode, moderate lisinopril 10 mg PO DAILY 90 tabs 1RF 90 days I10 - Essential (primary) hypertension ondansetron HCl 8 mg PO Q12H PRN 10 tabs 0RF nausea and vomiting 5 days Coding Level of Care Code New Pt Level 4 (63165) Diagnoses Diabetes E11.9 Hypertension I10 Morbid obesity with BMI of 50.0-59.9, adult E66.01; Z68.43 Moderate major depression F32.1 Additional Codes KEVIN-7 Assessment Billing - KEVIN-7 Assessment Tool: KEVIN-7 Assessment 54383 ([id number]) Time Spent (min) 25
[2023-02-14 16:28] VITALS: BP 140/100
== END 2023-02-14 16:10 | disposition home or self-care (01) ==
PROVIDERS: PCP Internal Medicine; Visit Provider Internal Medicine
DX: E11.9 Type 2 diabetes mellitus without complications (principal); I10 Essential (primary) hypertension; E66.01 Morbid (severe) obesity due to excess calories; Z68.43 Body mass index [BMI] 50.0-59.9, adult; F32.1 Major depressive disorder, single episode, moderate
CPT/HCPCS: 83036; 99204

== ENCOUNTER 2023-02-25 08:58 | Outpatient (REF) | payer OTHER, SELFPAY ==
[2023-02-25 12:08] LABS: Creatinine Urine 276.18 mg/dL; Microalbum/Creatinine Ratio Ur 18.1 ug/mg cr (<30)
[2023-02-25 12:22] LABS: Alanine Aminotransferase 20 U/L (0-31); Albumin Level 3.8 g/dL (3.5-5.0); Alkaline Phosphatase 44 U/L (39-117); Anion Gap 11 (12-20); Aspartate Amino Transferase 18 U/L (5-31); Bilirubin Total 0.6 mg/dL (0.0-1.0); Blood Urea Nitrogen 9 mg/dL (9-16); Calcium 9.1 mg/dL (8.4-10.2); Carbon Dioxide 25 mmol/L (22-29); Chloride 105 mmol/L (96-108); Cholesterol 175 mg/dL (<200); Estimated Glomerular Filt Rate > 60; Glucose Fasting 183 mg/dL (60-99); HDL Cholesterol 36 mg/dL (>40); LDL Cholesterol Calculated 104 mg/dL (<100); Potassium 3.9 mmol/L (3.3-5.1); Sodium 137 mmol/L (135-145); Thyroid Stimulating Hormone 0.62 uIU/mL (0.32-4.0); Total Protein 6.6 g/dL (6.5-8.0); Triglycerides 178 mg/dL (<150)
== END 2023-02-25 08:59 | disposition home or self-care (01) ==
LOC: HO.HMGCLDS 08:58
PROVIDERS: PCP Internal Medicine; Visit Provider Internal Medicine
DX: E66.01 Morbid (severe) obesity due to excess calories (principal); E78.5 Hyperlipidemia, unspecified; E11.9 Type 2 diabetes mellitus without complications; Z68.43 Body mass index [BMI] 50.0-59.9, adult
CPT/HCPCS: 36415; 80053; 80061; 82043; 82570; 84443

== ENCOUNTER 2023-03-02 14:21 | Outpatient (REF) | payer OTHER, SELFPAY ==
[2023-03-02 16:19] LABS: Appearance Urine Clear; Color Urine Yellow; Glucose Urine UA Negative (Negative); Leukocyte Esterase Urine Negative (Negative); Nitrite Urine Negative (Negative); PH 5.5 (5.0-9.0); UMIC TRIGGER UACC YES; Urine Blood Small (1+) (Negative); Urine Ketones Negative (Negative); Urine Protein Negative (Neg-Trace)
[2023-03-02 16:36] LABS: Bacteria Urine None Seen (None Seen); Hyaline Casts Urine 0-2 /LPF (0-2); RBC Urine 0-2 /HPF (0-2); Squamous Epithelial Cell Urine 0-2 /HPF (0-2); WBC Urine 0-5 /HPF (0-5)
== END 2023-03-02 14:22 | disposition home or self-care (01) ==
LOC: HO.HMGCLDS 14:21
PROVIDERS: PCP Internal Medicine; Visit Provider Internal Medicine
DX: R39.9 Unspecified symptoms and signs involving the genitourinary system (principal)
CPT/HCPCS: 81001

== ENCOUNTER → 2023-03-16 11:29 | Outpatient (BNVA) | payer OTHER, SELFPAY | PROVIDERS: PCP Internal Medicine; Visit Provider Physician Assistant ==

== ENCOUNTER 2023-03-17 10:57 | Outpatient (AMB) | payer OTHER, SELFPAY ==
--- NOTE | 2023-03-17 10:59 | MHC.OFFVISWM ---
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 Required: No Allergies codeine Allergy (Intermediate, Verified 03/17/23 11:16) Hives metformin Adverse Reaction (Severe, Verified 03/17/23 11:16) Diarrhea Medication List - Last Reconciled 03/17/23 by ERIC Carlos blood sugar diagnostic (FreeStyle Test strips) Use 1 test strip once a day blood-glucose meter (FreeStyle Lite Meter kit) As directed dulaglutide (Trulicity) 0.75 mg (0.5 mL) subcut QWEEK 30 days escitalopram oxalate 5 mg PO BEDTIME 30 days lancets (FreeStyle Lancets) Use 1 lancet once a day lisinopril 10 mg PO DAILY 90 days HPI HPI Comments History of Present Illness Details Pt is here to start the [facility] weight loss program. She heard about our program from her PCP. Her goal is to lose weight and achieve a healthy lifestyle as well as to improve, if not resolve, obesity related medical conditions, including DM, htn. She reports first being concerned about her weight in high school, highest weight to date was 345. Current weight is 311.8 pounds with a BMI of 48.9. She has tried multiple methods of weight loss including fad diets, and pills without permanent results. She lives with her mom, Flakita, and kids. She does not currently work. She wakes at:?630 am, and goes to bed at?10 pm. Dinner is at 630 pm. Breakfast: toast, w PB or jelly or cream cheese or egg AM snack: italian yogurt w fruit or granola Lunch: 1/2 sandwich or low carb wrap PM snack: fruit Dinner: baked chicken w rice, veg, After dinner: skip Other snacks: rice cakes Liquids: 128 oz water daily, rare juice, Alcohol/marijuana/tobacco intake: 2 drinks per month, smoke cannabis nightly, no tobacco Exercise: just joined [employer] GERD score: 0 NURIS score: 5 ESS score: 4 QOL score: 116 [facility] Medical History PTSD (post-traumatic stress disorder) Anxiety Depression Sciatica Obesity Hypertension Surgical History History of cholecystectomy History of pilonidal cyst History of Family History Mother Dementia Hypertension COPD (chronic obstructive pulmonary disease) Asthma Mental health disorder Diabetes mellitus Father Renal failure Substance use disorder Social History Housing: House Alcohol intake: current Alcohol intake frequency: holidays/special occasions only Alcohol type: hard liquor Patient Tobacco Use Status: Never used Tobacco e-Cigarette/Vaping Use: Never Used Second Hand Smoke Exposure: No service: No Current occupational status: employed Current occupational exposures/hazards: No Cognitive needs: No Hearing needs: No Vision needs: Yes Review of Systems Const All systems reviewed & are unremarkable except as noted in HPI and below Physical Exam Const General: cooperative, healthy appearing and no acute distress Orientation/consciousness: patient oriented x3 HEENT Head: Yes normal to inspection Ears: hearing grossly normal bilaterally General nose exam: Normal external nose present Face and sinus: Yes normal facial exam Eyes General: appearance normal, both eyes and all related structures Resp Effort & Inspection: normal respiratory effort Auscultation: clear to auscultation bilaterally Cardio Rate: regular rate Rhythm: regular rhythm Heart sounds: S1 normal heart sound present and S2 normal heart sound present GI Inspection: Yes normal to inspection, No distended and Yes obesity Palpation (GI): Soft to palpation, nontender and no guarding Auscultation: normal bowel sounds Skin General skin exam: no rashes or lesions noted Neuro General: patient oriented x3 Extrem General: No edema Psych Appearance: grossly normal Mental Status: mental status grossly normal Speech and movement: Normal speech and movement present Affect: normal affect Attitude: cooperative Assessment & Plan Assessment & Plan (1) Morbid obesity with BMI of 50.0-59.9, adult: Code(s): E66.01 - Morbid (severe) obesity due to excess calories; Z68.43 - Body mass index [BMI] 50.0-59.9, adult Plan: This is a?43 yo female who will start our SWL program to prepare for bariatric surgery.? Blood work, h pylori , CXR, ECG, Abd US and UGI have been ordered. She is being scheduled for RD and BH initial consultations. She will start SWL classes and watch the first three videos before her next appointment. ? Adequate sleep of 7-8 hours per night discussed, awakening at 630 am and going to bed around 10 pm ? You stated that you already purchased a body composition scale so just be sure and check weight weekly. The best time to do this is first thing in the morning after going to the bathroom. 1. Nutritional counseling: Be sure to careful read the number of scoops per shake Start with 2 Celebrate Rebuild shakes ([facility] [employer], [employer], [employer]) First shake (2 scoops in 20 oz low fat unsweetened almond milk) at 730am-930am, Second shake (2 scoops in 20 oz low fat unsweetened almond milk) at 1030am-1230pm 1 protein bar (Celebrate bars at [facility] [employer], [employer], [employer]) at 130pm-330pm. Dinner at 530-630pm (11 forks of protein and 11 forks of salad/vegetables). Meal to include lean meat (beef, fish, pork, turkey, chicken), cooked vegetables or a salad with olive oil and/or fruits (berries, pears, apples, kiwi). Avoid salt, breads, potatoes, rice, pasta, desserts. Another protein bar at 730pm-930pm. Try to drink 64 oz of water daily and avoid soda and juices. ?2. Each shake would be drunk slowly, like coffee in a period of 2 hours. ?3. Cut each bar in 4 pieces and eat each piece in 30 min ?to make each bar last 2 hours. ?4. I emphasized the importance of measuring accurately the food portion and measure it carefully when serving the food on the plate ?5. The meal portions include 11 full-size forks of meat and 11 full-size forks of salad. You always eat the meat portion but you can replace up to half of the forks of salad/vegetables with rice, potatoes or pasta, or a fruit ?if you like. The less you do it the better weight loss will be. ?6. One full-size fork is what can be scooped on the fork without falling aside and not what can be bit with the fork. Use regular forks like those you find in a typical restaurant. ?7.? Please send me weight measurements as soon as possible and then once a week. Always include your diet and exercise plan. Alternatively come weekly at the office for weight checks and send me the measurements. ?8. Exercise counseling: Begin by watching a stretching for beginners video. Start slowly and begin to stretch your muscles. You should do this before and after each exercise session to prevent injury. Please go to [employer] [facility] gym near your home. Ask the manager legal or one of the trainers how to use the machines if you are unfamiliar with them. Start elliptical with a resistance of 2. Increase resistance by 1 every 3 min to your most comfortable resistance with a max resistance of 8. Reduce the resistance by 1 every 3 minutes back down to 2 and repeat cycles for 300 calories. Alternatively, start treadmill with a speed of 2.6 and incline of 0, increasing incline by 1 every 3 minutes to the highest comfortable level (max 6 for now) then decrease in the same fashion. Repeat process to a goal of 300 calories. Goal of 2000 calories burned or more weekly. You may also consider use of the stationary bike. The easiest would be to chose the fat-burn or interval training program on the machine and do this until you reach the 300 calorie goal. Alternatively, you can manually adjust the resistance in a similar fashion as mentioned above, (resistance of 2-8 with a goal speed of 12 mph). Tracking calories is essential. These are you goals. It is ok and advised to start slowly but remain consistent and constantly try to improve. 9. Alternatively start walking outside daily, tracking calories with a goal of 300 calories per day, daily. You can download the hank [employer] which can track your time, distance and calories while walking outside. You press start in the hank when you start and then stop when you are finished. 10.? It is important to avoid for at least 18 months postoperatively and it has been discussed at the information session 11. Please get labs, EKG and chest X-Ray within 1 week. 12. Discussed and answered all questions regarding?obtained consent to participate in the [facility]?Registry. 13. Please follow the diet plan exactly, without any change. If you do not like something about the plan or you feel hungry, you need to communicate with me so I can help you revise the plan. You should not change the plan yourself. Text me at [phone] 14. Goal is to lose at least 12 pounds in the first month 15. Goal is to lose 10% of your weight before surgery, which is about 31 lbs. Ultimate weight goal: 280 lbs before surgery Patient is morbidly obese and is not considered stable at this time.?I spent a total of 70 minutes reviewing/updating records, examining the patient and counseling the patient on weight management as detailed above. Orders: Orders Insulin Today E11.9 - Type 2 diabetes mellitus without complications, E66.01 - Morbid (severe) obesity due to excess calories, I10 - Essential (primary) hypertension, Z68.43 - Body mass index [BMI] 50.0-59.9, adult Lipid Panel Today E11.9 - Type 2 diabetes mellitus without complications, E66.01 - Morbid (severe) obesity due to excess calories, I10 - Essential (primary) hypertension, Z68.43 - Body mass index [BMI] 50.0-59.9, adult Zinc Today E11.9 - Type 2 diabetes mellitus without complications, E66.01 - Morbid (severe) obesity due to excess calories, I10 - Essential (primary) hypertension, Z68.43 - Body mass index [BMI] 50.0-59.9, adult Vitamin A Today E11.9 - Type 2 diabetes mellitus without complications, E66.01 - Morbid (severe) obesity due to excess calories, I10 - Essential (primary) hypertension, Z68.43 - Body mass index [BMI] 50.0-59.9, adult C Reactive Protein Today E11.9 - Type 2 diabetes mellitus without complications, E66.01 - Morbid (severe) obesity due to excess calories, I10 - Essential (primary) hypertension, Z68.43 - Body mass index [BMI] 50.0-59.9, adult PTHI Today E11.9 - Type 2 diabetes mellitus without complications, E66.01 - Morbid (severe) obesity due to excess calories, I10 - Essential (primary) hypertension, Z68.43 - Body mass index [BMI] 50.0-59.9, adult H Pylori Breath Test Today E11.9 - Type 2 diabetes mellitus without complications, E66.01 - Morbid (severe) obesity due to excess calories, I10 - Essential (primary) hypertension, Z68.43 - Body mass index [BMI] 50.0-59.9, adult Hemoglobin A1c Today E11.9 - Type 2 diabetes mellitus without complications, E66.01 - Morbid (severe) obesity due to excess calories, I10 - Essential (primary) hypertension, Z68.43 - Body mass index [BMI] 50.0-59.9, adult US abdomen comp w elastography Today E11.9 - Type 2 diabetes mellitus without complications, E66.01 - Morbid (severe) obesity due to excess calories, I10 - Essential (primary) hypertension, Z68.43 - Body mass index [BMI] 50.0-59.9, adult ECG 12 lead EKG Today E11.9 - Type 2 diabetes mellitus without complications, E66.01 - Morbid (severe) obesity due to excess calories, I10 - Essential (primary) hypertension, Z68.43 - Body mass index [BMI] 50.0-59.9, adult FL upper GI w air Today E11.9 - Type 2 diabetes mellitus without complications, E66.01 - Morbid (severe) obesity due to excess calories, I10 - Essential (primary) hypertension, Z68.43 - Body mass index [BMI] 50.0-59.9, adult IRON PROFILE Today E11.9 - Type 2 diabetes mellitus without complications, E66.01 - Morbid (severe) obesity due to excess calories, I10 - Essential (primary) hypertension, Z68.43 - Body mass index [BMI] 50.0-59.9, adult Complete Blood Count Auto Diff Today E11.9 - Type 2 diabetes mellitus without complications, E66.01 - Morbid (severe) obesity due to excess calories, I10 - Essential (primary) hypertension, Z68.43 - Body mass index [BMI] 50.0-59.9, adult Vitamin B12 and Folate Today E11.9 - Type 2 diabetes mellitus without complications, E66.01 - Morbid (severe) obesity due to excess calories, I10 - Essential (primary) hypertension, Z68.43 - Body mass index [BMI] 50.0-59.9, adult Comprehensive Met. Panel Today E11.9 - Type 2 diabetes mellitus without complications, E66.01 - Morbid (severe) obesity due to excess calories, I10 - Essential (primary) hypertension, Z68.43 - Body mass index [BMI] 50.0-59.9, adult Vitamin B1 Today E11.9 - Type 2 diabetes mellitus without complications, E66.01 - Morbid (severe) obesity due to excess calories, I10 - Essential (primary) hypertension, Z68.43 - Body mass index [BMI] 50.0-59.9, adult Ferritin Today E11.9 - Type 2 diabetes mellitus without complications, E66.01 - Morbid (severe) obesity due to excess calories, I10 - Essential (primary) hypertension, Z68.43 - Body mass index [BMI] 50.0-59.9, adult TSH reflex Free T4 Today E11.9 - Type 2 diabetes mellitus without complications, E66.01 - Morbid (severe) obesity due to excess calories, I10 - Essential (primary) hypertension, Z68.43 - Body mass index [BMI] 50.0-59.9, adult Vitamin D 25-OH Total Today E11.9 - Type 2 diabetes mellitus without complications, E66.01 - Morbid (severe) obesity due to excess calories, I10 - Essential (primary) hypertension, Z68.43 - Body mass index [BMI] 50.0-59.9, adult XR chest 2V Today E11.9 - Type 2 diabetes mellitus without complications, E66.01 - Morbid (severe) obesity due to excess calories, I10 - Essential (primary) hypertension, Z68.43 - Body mass index [BMI] 50.0-59.9, adult Referrals Behavioral Health Referral E11.9 - Type 2 diabetes mellitus without complications, E66.01 - Morbid (severe) obesity due to excess calories, I10 - Essential (primary) hypertension, Z68.43 - Body mass index [BMI] 50.0-59.9, adult Nutrition/Dietitian Referral E11.9 - Type 2 diabetes mellitus without complications, E66.01 - Morbid (severe) obesity due to excess calories, I10 - Essential (primary) hypertension, Z68.43 - Body mass index [BMI] 50.0-59.9, adult Coding Level of Care Code New Pt Level 5 (72897) Diagnoses Morbid obesity with BMI of 50.0-59.9, adult E66.01; Z68.43 Time Spent (min) 70
[2023-03-17 11:06] VITALS: BP 144/83; PULSE 95; TEMP 35.7; O2SAT 95; BMI 48.8
== END 2023-03-17 12:34 | disposition home or self-care (01) ==
PROVIDERS: PCP Internal Medicine; Visit Provider Physician Assistant Surgical
DX: E66.01 Morbid (severe) obesity due to excess calories (principal); Z68.42 Body mass index [BMI] 45.0-49.9, adult
CPT/HCPCS: 99205

== ENCOUNTER → 2023-03-17 10:57 | Outpatient (BNVA) | payer OTHER, SELFPAY | PROVIDERS: PCP Internal Medicine; Visit Provider Physician Assistant Surgical ==

== ENCOUNTER 2023-03-21 11:50 | Outpatient (REF) | payer OTHER, SELFPAY ==
--- NOTE | 2023-03-21 11:53 | ECG_ITS ---
Test Reason : e66.01 Blood Pressure : / mmHG Vent. Rate : 074 BPM Atrial Rate : 074 BPM P-R Int : 160 ms QRS Dur : 084 ms QT Int : 406 ms P-R-T Axes : -01 -20 -05 degrees QTc Int : 450 ms Normal sinus rhythm Nonspecific T wave abnormality Anteroseptal leads Abnormal ECG When compared with ECG of 27-SEP-2020 22:23, Nonspecific T wave abnormality now evident in Anterior leads Referred By: Braxton Larios Electronically Signed By:SOLOMON MCCARTNEY MD
[2023-03-21 12:27] LABS: MANUAL DIFF FLAG NO
[2023-03-21 13:32] LABS: Basophils Percent Auto 0.5 % (0-2); Eosinophils Absolute Auto 0.3 X10*3/uL (0.0-0.4); Eosinophils Percent Auto 4.1 % (0-4); Hematocrit 44.6 % (37.0-47.0); Imm Gran Abs Auto 0.02 X10*3/uL (0.00-0.03); Imm Gran Pct Auto 0.3 % (0.0-0.4); Lymphocytes Absolute Auto 2.4 X10*3/uL (1.2-4.9); Mean Corpuscular HGB Conc 33.6 g/dl (31.0-35.0); Mean Corpuscular Hemoglobin 27.4 pg (27.0-33.0); Mean Corpuscular Volume 81.5 fL (80.0-98.0); Mean Platelet Volume 10.3 fL (9.4-12.3); Monocytes Absolute Auto 0.5 X10*3/uL (0.1-1.2); Monocytes Percent Auto 7.4 % (2-11); Neutrophils Percent Auto 48.7 % (45-73); Platelet Count 239 X10*3/uL (160-400); Red Blood Count 5.47 X10*6/uL (4.20-5.50); Red Cell Distribution Width 12.4 % (11.0-16.0); White Blood Count 6.1 X10*3/uL (4.8-10.8)
[2023-03-21 14:09] LABS: Estimated Average Glucose 189 mg/dL; Hemoglobin A1c % 8.2 % (<6.0)
[2023-03-21 14:35] LABS: Alanine Aminotransferase 44 U/L (0-31); Albumin Level 3.9 g/dL (3.5-5.0); Alkaline Phosphatase 48 U/L (39-117); Anion Gap 16 (12-20); Aspartate Amino Transferase 37 U/L (5-31); Bilirubin Total 0.4 mg/dL (0.0-1.0); Blood Urea Nitrogen 10 mg/dL (9-16); C Reactive Protein 0.65 mg/dL (< or = 0.50); Calcium 9.6 mg/dL (8.4-10.2); Carbon Dioxide 24 mmol/L (22-29); Chloride 105 mmol/L (96-108); Cholesterol 170 mg/dL (<200); Estimated Glomerular Filt Rate > 60; Glucose Random 142 mg/dL (60-115); HDL Cholesterol 37 mg/dL (>40); Iron 72 mcg/dL (30-160); LDL Cholesterol Calculated 109 mg/dL (<100); Percent Iron Saturation 25 % (15-50); Potassium 4.1 mmol/L (3.3-5.1); Sodium 141 mmol/L (135-145); Total Iron Binding Capacity 293 mcg/dL (228-428); Total Protein 6.7 g/dL (6.5-8.0); Triglycerides 121 mg/dL (<150); Unsaturated Iron Binding 221 ug/dL
[2023-03-21 15:00] LABS: Folate 12.2 ng/mL (> or = 4.0); Vitamin B12 435 pg/mL (200-900)
[2023-03-21 15:06] LABS: Ferritin 297 ng/mL (10-250); Insulin 33 uU/mL (2-29); TSH reflex Free T4 0.53 uIU/mL (0.32-4.0); Vitamin D 25-OH Total 24.5 ng/mL (>30)
[2023-03-22 15:48] LABS: Calcium (PTHI) 9.1 mg/dL (8.6-10.2); PTHI 54 pg/mL (16-77)
[2023-03-23 23:58] LABS: Zinc 67 mcg/dL (60-130)
[2023-03-24 09:13] LABS: Vitamin A 54 mcg/dL (38-98)
[2023-03-26 10:28] LABS: Vitamin B1 6 nmol/L (8-30)
== END 2023-03-21 11:51 | disposition home or self-care (01) ==
LOC: HO.LAB 11:50
PROVIDERS: Visit Provider Physician Assistant Surgical
DX: E66.01 Morbid (severe) obesity due to excess calories (principal); Z68.43 Body mass index [BMI] 50.0-59.9, adult; E11.9 Type 2 diabetes mellitus without complications; I10 Essential (primary) hypertension
CPT/HCPCS: 36415; 80053; 80061; 82306; 82607; 82728; 82746; 83036; 83525; 83540; 83970; 84425; 84443; 84590; 84630; 85025; 86140; 93005

== ENCOUNTER 2023-05-11 15:08 | Outpatient (AMB) | payer OTHER, SELFPAY ==
--- NOTE | 2023-05-11 15:10 | A.OFFVIS_ITS ---
Intake VS Expanded 05/11/23 15:42 BP 195/92 H Blood Pressure Location Rt brachial Blood Pressure Position Right Lateral Pulse 82 Pulse Source Pulse Oximeter Temp 97.1 F Temperature Source Tympanic Pulse Oximetry 98 Oxygen Delivery Method Room Air Height 5 ft 7 in Weight 308 lb 6.4 oz BMI 48.3 Body Fat % 36.3 Body Fat Mass 151.2 Fat Free Mass 157.0 Visceral Fat Rating 17.0 Body Water % 36.3 Body Water Mass 112.0 Muscle Mass/Score 149.0 Basal Metabolic Rate/Score 2,260 Intake Visit Reasons: (OV) f/u SWL Allergies codeine Allergy (Intermediate, Verified 03/17/23 11:16) Hives metformin Adverse Reaction (Severe, Verified 03/17/23 11:16) Diarrhea Medication List - Last Reconciled 05/11/23 by ERIC Carlos blood sugar diagnostic (FreeStyle Test strips) Use 1 test strip once a day blood-glucose meter (FreeStyle Lite Meter kit) As directed cholecalciferol (vitamin D3) 125 mcg PO DAILY 90 days cyanocobalamin (vitamin B-12) 500 mcg PO DAILY 90 days dulaglutide (Trulicity) 0.75 mg (0.5 mL) subcut QWEEK 30 days escitalopram oxalate 5 mg PO BEDTIME 30 days lancets (FreeStyle Lancets) Use 1 lancet once a day lisinopril 10 mg PO DAILY 90 days ondansetron HCl 8 mg PO Q12H PRN 30 days thiamine HCl (vitamin B1) 100 mg PO DAILY 90 days HPI HPI Comments History of Present Illness Details The patient is a pleasant 43 year old female who returns to the clinic for pre-operative surgical weight loss management. They were last seen in the office on 03/17/23, recorded weight at that time was 311.8 pounds, with a BMI of 48.8. Today's weight is 308.4 pounds and BMI is 48.3. There has been a weight loss of 3.4 pounds since initiating the surgical weight loss program on 03/17/23 with a total body weight loss of 1.09 %. Pre op work up completed as follows: SWL classes:? []/8 BH appts: missed 04/18/23 ? ? RD appts: missed 04/19/23 Labs: 03/21/23-low D, B12:435, A1c: 8.2 H. pylori: 05/11/23 CXR: not yet done EK03/21/23-non sp T wave abnl ABD U/S: 06/02/23 UGI: 06/02/23 The patient reports she started on PT due to the back pain. The patient did get a body composition scale. They also have been communicating weekly. Current meal plan includes: 2 Celebrate Rebuild shakes ([facility] [employer], [email or web address], [employer]) First shake (2 scoops in 20 oz low fat unsweetened almond milk) at 730am-930am, Second shake (2 scoops in 20 oz low fat unsweetened almond milk) at 1030am- 1230pm 1 protein bar ([facility] [employer], [email or web address], [employer]) at 130pm-330pm. Dinner at 530-630pm (11 forks of protein and 11 forks of salad/vegetables). Meal to include lean meat (beef, fish, pork, turkey, chicken), cooked vegetables or a salad with olive oil and/or fruits (berries, pears, apples, kiwi). Avoid salt, breads, potatoes, rice, pasta, desserts. Hungarian yogurt at 730pm-930pm. Drinking 64 oz of water Current exercise plan includes: none due to back pain. [facility] Medical History PTSD (post-traumatic stress disorder) Anxiety Depression Sciatica Obesity Hypertension Surgical History History of cholecystectomy History of pilonidal cyst History of Family History Mother Dementia Hypertension COPD (chronic obstructive pulmonary disease) Asthma Mental health disorder Diabetes mellitus Father Renal failure Substance use disorder Social History Housing: House Alcohol intake: current Alcohol intake frequency: holidays/special occasions only Alcohol type: hard liquor Patient Tobacco Use Status: Never used Tobacco e-Cigarette/Vaping Use: Never Used Second Hand Smoke Exposure: No service: No Current occupational status: employed Current occupational exposures/hazards: No Cognitive needs: No Hearing needs: No Vision needs: Yes Physical Exam Const General: healthy appearing and no acute distress Resp Effort & Inspection: normal respiratory effort Auscultation: clear to auscultation bilaterally Cardio Rate: regular rate Rhythm: regular rhythm GI Auscultation: normal bowel sounds Extrem General: Yes normal to inspection Assessment & Plan Assessment & Plan (1) Morbid obesity with BMI of 50.0-59.9, adult: Code(s): E66.01 - Morbid (severe) obesity due to excess calories; Z68.43 - Body mass index [BMI] 50.0-59.9, adult Plan: The patient is going to take a break from the program for right now, she is going to do the exercises as recommended by Physical therapy with re-evaluation in 3 weeks. She will text me at that time to determine if she needs to completely withdrawal from the program or if she is now able to do more physical activity. She will continue to follow the meal plan as above and further determination will be based upon her physical capacity and her ongoing responsibilities to deal with her ill mother. Coding Level of Care Code Est Pt Level 3 (86341) Diagnoses Morbid obesity with BMI of 50.0-59.9, adult E66.01; Z68.43
[2023-05-11 15:42] VITALS: BP 195/92; PULSE 82; TEMP 36.2; O2SAT 98; BMI 48.3
== END 2023-05-11 16:18 | disposition home or self-care (01) ==
PROVIDERS: PCP Internal Medicine; Visit Provider Physician Assistant Surgical
DX: E66.01 Morbid (severe) obesity due to excess calories (principal); Z68.43 Body mass index [BMI] 50.0-59.9, adult
CPT/HCPCS: 99213

== ENCOUNTER 2023-05-11 15:08 | Outpatient (REF) | payer OTHER, SELFPAY ==
[2023-05-14 13:46] LABS: H Pylori Breath Test Negative (Negative)
== END 2023-05-11 15:09 | disposition home or self-care (01) ==
LOC: CF 15:08
PROVIDERS: PCP Internal Medicine; Visit Provider Physician Assistant Surgical
DX: Z01.818 Encounter for other preprocedural examination (principal); E66.01 Morbid (severe) obesity due to excess calories; E11.9 Type 2 diabetes mellitus without complications; I10 Essential (primary) hypertension; Z79.899 Other long term (current) drug therapy; Z71.3 Dietary counseling and surveillance; Z68.42 Body mass index [BMI] 45.0-49.9, adult
CPT/HCPCS: 83013; 99211; 99212

== ENCOUNTER 2023-05-12 08:00 | Outpatient (RCR) | payer OTHER, SELFPAY ==
[2023-05-09 15:09] VITALS: BP 197/98
== END 2023-06-20 10:46 | disposition home or self-care (01) ==
LOC: HO.PT 08:00
PROVIDERS: PCP Internal Medicine; Visit Provider Internal Medicine
DX: M54.50 Low back pain, unspecified (principal)
CPT/HCPCS: 97110; 97161

== ENCOUNTER 2023-06-20 11:08 | Outpatient (REF) | payer OTHER, SELFPAY ==
[2023-06-20 14:09] LABS: Estimated Average Glucose 117 mg/dL; Hemoglobin A1C 151.2543 umol/L; Hemoglobin A1c % 5.7 % (<6.0)
[2023-06-20 14:23] LABS: Alanine Aminotransferase 12 U/L (0-31); Albumin Level 3.9 g/dL (3.5-5.0); Alkaline Phosphatase 46 U/L (39-117); Anion Gap 11 (12-20); Aspartate Amino Transferase 12 U/L (5-31); Bilirubin Total 0.4 mg/dL (0.0-1.0); Blood Urea Nitrogen 11 mg/dL (9-16); Calcium 9.6 mg/dL (8.4-10.2); Carbon Dioxide 25 mmol/L (22-29); Chloride 105 mmol/L (96-108); Cholesterol 188 mg/dL (<200); Estimated Glomerular Filt Rate 57; Glucose Fasting 134 mg/dL (60-99); HDL Cholesterol 42 mg/dL (>40); LDL Cholesterol Calculated 121 mg/dL (<100); Potassium 4.4 mmol/L (3.3-5.1); Sodium 137 mmol/L (135-145); Total Protein 7.1 g/dL (6.5-8.0); Triglycerides 129 mg/dL (<150)
[2023-06-20 14:24] LABS: Creatinine Urine 170.77 mg/dL; Microalbum/Creatinine Ratio Ur 2.9 ug/mg cr (<30)
== END 2023-06-20 11:09 | disposition home or self-care (01) ==
LOC: HO.HMGCLDS 11:08
PROVIDERS: PCP Internal Medicine; Visit Provider Internal Medicine
DX: E11.40 Type 2 diabetes mellitus with diabetic neuropathy, unspecified (principal); E66.01 Morbid (severe) obesity due to excess calories; Z68.43 Body mass index [BMI] 50.0-59.9, adult; E78.5 Hyperlipidemia, unspecified
CPT/HCPCS: 36415; 80053; 80061; 82043; 82570; 83036

== ENCOUNTER 2023-06-20 14:17 | Outpatient (AMB) | payer OTHER, SELFPAY ==
[2023-06-20 14:24] VITALS: BP 136/82; BMI 48.2
--- NOTE | 2023-06-20 14:24 | MHC.PC.OV ---
Vital Signs 06/20/23 14:24 Height 5 ft 7 in Weight 308 lb BMI 48.2 BP 136/82 Blood Pressure Location Lt brachial Position Sitting Intake Visit Reasons: pe Intake Note: Patient here for a physical exam Film Masker Required: No Accompanied by: Self / Same As Patient Allergies codeine Allergy (Intermediate, Verified 06/20/23 14:39) Hives metformin Adverse Reaction (Severe, Verified 06/20/23 14:39) Diarrhea Medication List - Last Reconciled 06/20/23 by Oliva Gonzalez MD blood sugar diagnostic (FreeStyle Test strips) Use 1 test strip once a day blood-glucose meter (FreeStyle Lite Meter kit) As directed cholecalciferol (vitamin D3) 125 mcg PO DAILY 90 days cyanocobalamin (vitamin B-12) 500 mcg PO DAILY 90 days dulaglutide (Trulicity) mg subcut escitalopram oxalate 5 mg PO BEDTIME 30 days lancets (FreeStyle Lancets) Use 1 lancet once a day lisinopril 10 mg PO DAILY 90 days ondansetron HCl 8 mg PO Q12H PRN 30 days thiamine HCl (vitamin B1) 100 mg PO DAILY 90 days Tobacco use date assessed: 06/20/23 Dental Screening Dental Screen Date: 06/20/23 Did you have a dental visit in the last 12 months?: No Did you have a dental problem in the last 6 months where you did not have access to dental care?: No Was dental information given to patient?: Patient has dentist HPI HPI Comments History of Present Illness Details This is a 43-year-old female with diabetes mellitus type 2, moderate major depression and morbid obesity that comes for her physical exam. A1c within goal. Depression has improved with escitalopram at bedtime. She is morbidly obese but has lost weight and is enroll in weight management. Diabetic eye exam was about 3 months ago. Has never had a mammogram. Last Pap smear was over 4 years ago. Has never had a colonoscopy and has no family history of colon cancer. Prefers Cologuard as screening method. She complains of stress urinary incontinence that happens when she coughs and was referred to Urology for this matter. [facility] Medical History (Updated 06/20/23 @ 15:04 by Oliva Gonzalez MD) Morbid obesity with BMI of 50.0-59.9, adult PTSD (post-traumatic stress disorder) Anxiety Depression Sciatica Obesity Hypertension Surgical History History of cholecystectomy History of pilonidal cyst History of Family History (Updated 06/20/23 @ 14:44 by Oliva Gonzalez MD) Mother Dementia Hypertension COPD (chronic obstructive pulmonary disease) Asthma Mental health disorder Diabetes mellitus Father Substance use disorder Liver failure Social History Housing: House Alcohol intake: current Alcohol intake frequency: holidays/special occasions only Alcohol type: hard liquor Patient Tobacco Use Status: Never used Tobacco e-Cigarette/Vaping Use: Never Used Second Hand Smoke Exposure: No service: No Current occupational status: employed Current occupational exposures/hazards: No Cognitive needs: No Hearing needs: No Vision needs: Yes Questionnaire PHQ-9 Over the last 2 weeks, how often have you been bothered by any of the following problems? 1. Little interest or pleasure in doing things: more than half the days 2. Feeling down, depressed, or hopeless: more than half the days 3. Trouble falling or staying asleep, or sleeping too much: more than half the days 4. Feeling tired or having little energy: nearly every day 5. Poor appetite or overeating: more than half the days 6. Feeling bad about yourself - or that you are a failure or have let yourself or your family down: nearly every day 7. Trouble concentrating on things, such as reading the newspaper or watching television: nearly every day 8. Moving or speaking so slowly that other people could have noticed. Or the opposite - being so fidgety or restless that you have been moving around a lot more than usual: nearly every day 9. Thoughts that you would be better off or of hurting yourself in some way: not at all Total score: 20 Depression Screening Interpretation: Positive (no suicidal thoughts) Depression Screening Follow-up: Existing condition Depression Screening Done: Yes 46554 - PHQ-9 Billing: Yes Source: Developed by Drs. Billy Curiel, Sharri Jacobo, Ramsey Luis and colleagues, with an educational darleen from [employer]. Thrive Questionnaire Date Thrive assessed: 06/20/23 I am a: Patient What is your living situation today?: I have a steady place to live Within the past 12 months, did the food you bought not last and you didn't have the money to get more?: Never true Within the past 12 months, did you worry whether your food would run out before you got money to buy more?: Never true Do you have trouble paying for medicines?: No Do you have trouble getting transportation to medical appointments?: No Do you have trouble paying your heating and electricity bill?: No Do you have trouble taking care of your child, family member or friend?: No Do you have trouble with day-to-day activities such as bathing, preparing meals, shopping, managing finances, etc.?: No Are you currently unemployed and looking for a job?: No Are you interested in more education?: No Please select the resources that you would like help with: None AUDIT C Alcohol Use Questionnaire (AUDIT-C) 1. How often do you have a drink containing alcohol?: Monthly or less 2. How many drinks containing alcohol do you have on a typical day when you are drinking?: 1 or 2 3. How often do you have six or more drinks on one occasion?: Never Total Score: 1 Score Reviewed/Action Taken: No KEVIN-7 AMB Questionnaire KEVIN-7 Date KEVIN - 7 assessed: 06/20/23 Feeling nervous, anxious, or on edge: 3 = Nearly every day Not being able to stop or control worryin = More than half the days Worrying too much about different things: 3 = Nearly every day Trouble relaxin = Nearly every day Being so restless that it is hard to sit still: 2 = More than half the days Becoming easily annoyed or irritable: 3 = Nearly every day Feeling afraid as if something awful might happen: 3 = Nearly every day Total KEVIN-7 score (0-4 normal; 5-9 mild; 10-14 moderate; 15-21 severe): 19 Source: Developed by Drs. Billy Curiel, Sharri Jacobo, Ramsey Luis and colleagues, with an educational darleen from [employer]. KEVIN-7 Assessment Billing KEVIN-7 Assessment Tool: KEVIN-7 Assessment 15003 Review of Systems Const All systems reviewed & are unremarkable except as noted in HPI and below Eyes Reports no additional complaints, Denies change in vision and Denies other visual disturbances Card Denies chest pain at rest, Denies chest pain with activity, Denies edema, Denies irregular heart rhythm, Denies claudication, Denies dyspnea, Denies dyspnea on exertion, Denies orthopnea, Denies paroxysmal nocturnal dyspnea and Denies slow heart rate Resp Denies cough, Denies dyspnea and Denies dyspnea on exertion GI Denies abdominal pain, Denies change in bowel habits, Denies excessive flatus, Denies nausea and Denies vomiting Reports urinary incontinence, Denies urinary hesitancy and Denies urinary urgency Musc Reports back pain, Denies atrophy, Denies deformity and Denies limited range of motion Physical exam (Primary Care) Vital Signs: Last Vital Signs BP 136/82 06/20/23 14:24 BMI result Body Mass Index 48.2 Tobacco/Smoking Status: Tobacco use Status Tobacco use date assessed 06/20/23 06/20/23 14:32 Patient Tobacco Use Status Never used Tobacco 06/20/23 14:32 e-Cigarette/Vaping Use Never Used 06/20/23 14:32 PHQ-9: PHQ-9 Score PHQ-9: Total score 20 06/20/23 14:32 Depression Screening Interpretation: Positive (no suicidal thoughts) Depression Screening Follow-up: Existing condition Thrive Assessment: Date of Thrive Assessment Date Thrive assessed 06/20/23 06/20/23 14:32 Const Orientation/consciousness: patient oriented x3 HENDE Head: Yes normal to inspection, Yes normocephalic and Yes atraumatic Ears: external ears normal Eyes General: appearance normal, both eyes and all related structures Eyelids: Yes eyelids normal Conjunctivae: conjunctivae normal Neck Neck: Yes normal visual inspection and Yes supple Resp Effort & Inspection: normal respiratory effort Auscultation: clear to auscultation bilaterally Cardio Jugular venous distension: no JVD Rate: regular rate Rhythm: regular rhythm Heart sounds: S1 normal heart sound present and S2 normal heart sound present GI Inspection: Yes normal to inspection Palpation (GI): Soft to palpation and nontender Auscultation: normal bowel sounds Skin General skin exam: no rashes or lesions noted Neuro General: patient oriented x3 and no focal motor deficits Extrem General: Yes full ROM Psych Appearance: grossly normal Office Procedures Flu Questionnaire Does the patient have a severe egg allergy?: No Results AMB Hemoglobin A1c AMB Hemoglobin A1c 6.0 % Last Edit by PEYTON Dawson on 06/20/23 14:34 Immunizations flu vacc [id number] 6mos up(PF) 60 mcg(15 mcgx4)/0.5 mL IM syringe Performing Provider: Oliva Gonzalez MD [facility] Documented (not given) by: PEYTON Dawson on 06/20/23 14:32 Reason Not Given: Patient Refused Results Reviewed Results Reviewed: Laboratory Last Values Hgb A1c (Clinic) 6.0 % (4.0-6.0) 06/20/23 14:23 Assessment and Plan Assessment & Plan (1) Physical exam: Code(s): Z00.00 - Encounter for general adult medical examination without abnormal findings Plan: Repeat in a year. (2) Moderate major depression: Code(s): F32.1 - Major depressive disorder, single episode, moderate Plan: Continue escitalopram. (3) Diabetes: Code(s): E11.9 - Type 2 diabetes mellitus without complications Qualifiers: Diabetes mellitus type: type 2 Diabetes mellitus manager terminal insulin use: without manager terminal use Diabetes mellitus complication status: without complication Qualified Code(s): E11.9 - Type 2 diabetes mellitus without complications Plan: Continue Trulicity. Follow-up with [facility] Endocrinology. A1c goal is equal or less than 7%. Do diabetic eye exam yearly. (4) Morbid obesity with BMI of 45.0-49.9, adult: Code(s): E66.01 - Morbid (severe) obesity due to excess calories; Z68.42 - Body mass index [BMI] 45.0-49.9, adult Plan: Follow-up with weight management. BMI goal is less than 30. Orders: Orders AMB Hemoglobin A1c Today E11.9 - Type 2 diabetes mellitus without complications Influenza [id number] Immunization Today Z23 - Encounter for immunization Microalbumin, Random (w Creat) 4 Months E11.9 - Type 2 diabetes mellitus without complications Vitamin D 25-OH Total 4 Months E55.9 - Vitamin D deficiency, unspecified Comprehensive [place]. Panel Fast 4 Months E11.9 - Type 2 diabetes mellitus without complications MM screening mammo BI Today Z12.31 - Encounter for screening mammogram for malignant neoplasm of breast Lipid Panel 4 Months E78.5 - Hyperlipidemia, unspecified Referrals PUBLICATIONS DESIGNER Referral Z12.4 - Encounter for screening for malignant neoplasm of cervix Cologuard Test Z12.11 - Encounter for screening for malignant neoplasm of colon, Z12.12 - Encounter for screening for malignant neoplasm of rectum Urology Referral N39.3 - Stress incontinence (female) (male) Medications: New rosuvastatin 20 mg PO DAILY 90 days 90 tabs 1RF E78.5 - Hyperlipidemia, unspecified Coding Level of Care Code Est Pt Prev Care 40-64y(54947) Diagnoses Physical exam Z00.00 Moderate major depression F32.1 Type 2 diabetes mellitus without complication, without long-term current use of insulin E11.9 Diabetes mellitus type: type 2 Diabetes mellitus skilled nursing insulin use: without manager terminal use Diabetes mellitus complication status: without complication Morbid obesity with BMI of 45.0-49.9, adult E66.01; Z68.42 Additional Codes KEVIN-7 Assessment Billing - KEVIN-7 Assessment Tool: KEVIN-7 Assessment 58789 ([id number]) Time Spent (min) 35
== END 2023-06-20 14:55 | disposition home or self-care (01) ==
PROVIDERS: PCP Internal Medicine; Visit Provider Internal Medicine
DX: Z00.00 Encounter for general adult medical examination without abnormal findings (principal); E11.9 Type 2 diabetes mellitus without complications; E66.01 Morbid (severe) obesity due to excess calories; Z68.42 Body mass index [BMI] 45.0-49.9, adult
CPT/HCPCS: 83036; 99396

== ENCOUNTER 2023-08-09 11:35 | Outpatient (AMB) | payer OTHER, SELFPAY ==
--- NOTE | 2023-08-09 11:48 | A.OFFVIS_ITS ---
Intake Intake Visit Reasons: Stress incontinence (LVM) Intake Note: New Patient presents for initial visit for stress incontinence Urology Medications: none Blood Thinner: none PVR: 0ml's Clinical Training Coordinator Required: No Accompanied by: Self / Same As Patient Allergies codeine Allergy (Intermediate, Verified 08/09/23 12:37) Hives metformin Adverse Reaction (Severe, Verified 08/09/23 12:37) Diarrhea Medication List - Last Reconciled 08/09/23 by JENNIFER Jett blood sugar diagnostic (FreeStyle Test strips) Use 1 test strip once a day blood-glucose meter (FreeStyle Lite Meter kit) As directed cholecalciferol (vitamin D3) 125 mcg PO DAILY 90 days cyanocobalamin (vitamin B-12) 500 mcg PO DAILY 90 days dulaglutide (Trulicity) mg subcut escitalopram oxalate 5 mg PO BEDTIME 30 days lancets (FreeStyle Lancets) Use 1 lancet once a day lisinopril 10 mg PO DAILY 90 days ondansetron HCl 8 mg PO Q12H PRN 30 days oxybutynin chloride ER 10 mg PO DAILY 30 days rosuvastatin 20 mg PO DAILY 90 days thiamine HCl (vitamin B1) 100 mg PO DAILY 90 days HPI HPI Comments History of Present Illness Details Queenie is a pleasant 43-year-old female patient of Dr. Eris Gonzalez. She has a past medical history of obesity, PTSD, anxiety, depression, sciatic, and hypertension. She presents to the office today as a new patient for mixed urinary incontinence. In discussion with the patient today she reports symptoms to have been ongoing and progressing. She reports noting when symptoms for started urinary incontinence was present with coughing, sneezing, and increased activity. However, she feels now urinary incontinence happens with moments without stress incontinence. Discussed at length potential causes of mixed urinary incontinence. She does report having had 3 children one via vaginal delivery two via . She reports babies to have been large weighing approximately 10 lb each. When asked she denies hematuria, dysuria, foul smelling urine, changes to urinary stream, flank pain, fever, and or chills. In office urinalysis results reviewed with the patient today. PVR 0 mL. Discussed at length lifestyle modifications to assist with mixed urinary incontinence. Discussed further treatment options to include pelvic floor therapy and or trial of medication. Discussed possible near future in office cystoscopy and or urodynamics if symptoms persist and/or worsen. Discussed bladder triggers/irritants. Discussed obtaining retroperitoneal ultrasound for further assessment evaluation. She discusses at length her upcoming wedding in approximately a month and discusses her love for her 3 rescue dogs. 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 [facility] Medical History Morbid obesity with BMI of 50.0-59.9, adult PTSD (post-traumatic stress disorder) Anxiety Depression Sciatica Obesity Hypertension Surgical History History of cholecystectomy History of pilonidal cyst History of Family History Mother Dementia Hypertension COPD (chronic obstructive pulmonary disease) Asthma Mental health disorder Diabetes mellitus Father Substance use disorder Liver failure Social History Housing: House Alcohol intake: current Alcohol intake frequency: holidays/special occasions only Alcohol type: hard liquor Patient Tobacco Use Status: Never used Tobacco e-Cigarette/Vaping Use: Never Used Second Hand Smoke Exposure: No service: No Current occupational status: employed Current occupational exposures/hazards: No Cognitive needs: No Hearing needs: No Vision needs: Yes Review of Systems Const Reports no additional complaints Eyes Reports no additional complaints ENT Reports no additional complaints Card Reports as per HPI Resp Reports no additional complaints GI Reports no additional complaints Reports as per HPI Musc Reports as per HPI Neuro Reports as per HPI Psych Reports as per HPI Endo Reports as per HPI Cristóbal/Lymph Reports no additional complaints Aller/Immun Reports no additional complaints Physical Exam Const General: cooperative, healthy appearing, comfortable, no acute distress, well developed, alert and awake Nutritional Appearance: overweight Orientation/consciousness: patient oriented x3 Limitations: no limitations HEENT Head: Yes normal to inspection, Yes normocephalic and Yes atraumatic Ears: hearing grossly normal bilaterally Eyes General: appearance normal, both eyes and all related structures Neck Neck: Yes normal visual inspection and Yes trachea midline Chest Chest palpation & inspection: normal inspection of the chest Resp Effort & Inspection: normal respiratory effort and able to speak in complete sentences Cardio Rate: regular rate GI Inspection: Yes normal to inspection General: Yes no CVA tenderness Back/Spine/Pelvis Back: no CVA tenderness Skin General skin exam: no rashes or lesions noted Neuro General: patient oriented x3 Extrem General: Yes normal to inspection Psych Appearance: grossly normal and well kempt Mental Status: mental status grossly normal Speech and movement: Normal speech and movement present and Clear speech present Affect: normal affect Attitude: cooperative Thought process: Normal thought process present Thought content: Normal thought content present Insight: Fair insight present (Psych) Judgement: Fair judgement present (Psych) Office Procedures Post Void Residual Post Residual Void Post Void Residual (PVR): 0 [id number] Void Residual by ultrasound Results AMB Urinalysis, Automated UA Leukoctes 0 Kang/uL Last Edit by [employer] on 08/09/23 12:07 UA Nitrite Negative Last Edit by [employer] on 08/09/23 12:07 UA Urobilinogen 0.2 mg/dL Last Edit by [employer] on 08/09/23 12:07 UA Protein 15 mg/dL Last Edit by [employer] on 08/09/23 12:07 UA pH 5.5 Last Edit by [employer] on 08/09/23 12:07 UA Blood 0 Hakeem/uL Last Edit by [employer] on 08/09/23 12:07 UA Specific [place] 1.020 Last Edit by [employer] on 08/09/23 12:07 UA Ketone Negative Last Edit by [employer] on 08/09/23 12:07 UA Bilirubin 0 mg/dL Last Edit by [employer] on 08/09/23 12:07 UA Glucose 0 mg/dL Last Edit by [employer] on 08/09/23 12:07 Results Reviewed Results Reviewed: Laboratory Last Values Urine pH (Auto) 5.5 08/09/23 12:06 Specific [place] (Auto) 1.020 08/09/23 12:06 Urine Protein (Auto) 15 mg/dL 08/09/23 12:06 Glucose (UA)(Auto) 0 mg/dL 08/09/23 12:06 Urine Ketones (Auto) Negative 08/09/23 12:06 Urine Blood (Auto) 0 Hakeem/uL 08/09/23 12:06 Urine Nitrite (Auto) Negative 08/09/23 12:06 Urine Bilirubin (Auto) 0 mg/dL 08/09/23 12:06 Urine Urobilinogen (Auto) 0.2 mg/dL 08/09/23 12:06 Leukocyte Esterase (Auto) 0 Kang/uL 08/09/23 12:06 Assessment & Plan Assessment & Plan (1) Mixed stress and urge urinary incontinence: Code(s): N39.46 - Mixed incontinence Plan In office urinalysis results reviewed with the patient today; as noted above. PVR 0 mL. Discussed at length potential causes for mixed urinary incontinence. Discussed at length importance of management and diabetes for improvement in lower urinary tract symptoms as well as overall health and well-being. Discussed lifestyle modifications to assist with mixed urinary incontinence. Will obtain retroperitoneal ultrasound for further assessment evaluation. Start oxybutynin 10 mg daily as discussed and prescribed. Discussed pelvic floor therapy at length shes currently not interested at this time Discussed bladder triggers/irritants. Follow-up in 2-3 months with imaging and PVR; or sooner with any issues, concer ns, and or questions. Orders: Orders AMB Post Void Residual by ultrasound Today N39.3 - Stress incontinence (female) (male) AMB Urinalysis Automated Today Z13.9 - Encounter for screening, unspecified US retroperitoneal comp Today N39.46 - Mixed incontinence Medications: New oxybutynin chloride ER 10 mg PO DAILY 30 tabs 2RF 30 days N32.81 - Overactive bladder Coding Level of Care Code New Pt Level 4 (97261) Diagnoses Mixed stress and urge urinary incontinence N39.46 CPT Codes Post Residual Void - PVR CPT Code: [id number] Void Residual by ultrasound ([id number])
== END 2023-08-09 12:48 | disposition home or self-care (01) ==
PROVIDERS: PCP Internal Medicine; Visit Provider Nurse Practitioner Family
DX: N39.46 Mixed incontinence (principal); Z13.9 Encounter for screening, unspecified
CPT/HCPCS: 99204

== ENCOUNTER → 2023-08-09 11:35 | Outpatient (BNVA) | payer OTHER, SELFPAY | PROVIDERS: PCP Internal Medicine; Visit Provider Nurse Practitioner Family | DX: N39.46 Mixed incontinence (principal) | CPT/HCPCS: 51798; 81003; 99202 ==

== ENCOUNTER 2023-08-25 15:20 | Outpatient (REF) | payer OTHER, SELFPAY ==
[2023-08-25 16:37] LABS: Appearance Urine Cloudy; Color Urine Yellow; Glucose Urine UA Negative (Negative); Leukocyte Esterase Urine Moderate (2+) (Negative); Nitrite Urine Negative (Negative); Specific Gravity - Urine 1.015 (1.005-1.025); UMIC TRIGGER UACC YES; Urine Blood Negative (Negative); Urine Ketones Negative (Negative); Urine Protein Negative (Neg-Trace)
[2023-08-25 16:42] LABS: Bacteria Urine 1+ (None Seen); Hyaline Casts Urine 0-2 /LPF (0-2); RBC Urine 0-2 /HPF (0-2); UACC Culture Trigger YES; WBC Urine >50 /HPF (0-5)
== END 2023-08-25 15:21 | disposition home or self-care (01) ==
LOC: HO.HMGCLDS 15:20
PROVIDERS: PCP Internal Medicine; Visit Provider Internal Medicine
DX: R39.9 Unspecified symptoms and signs involving the genitourinary system (principal)
CPT/HCPCS: 81001; 87086

== ENCOUNTER 2023-08-26 15:06 | Outpatient (AMB) | payer OTHER, SELFPAY ==
--- NOTE | 2023-08-26 15:10 | AM.OFFWIN_ITS ---
Intake Vital Signs 08/26/23 15:11 Height 5 ft 7 in Weight 308 lb BMI 48.2 BP 134/82 Blood Pressure Location Lt brachial Position Sitting Pulse 86 Pulse Source Pulse Oximeter Pulse Oximetry (%) 98 Intake Visit Reasons: EP ?UTI Intake Note: pt is here for possible uti Patient Tobacco Use Status: Never used Tobacco Allergies codeine Allergy (Intermediate, Verified 08/26/23 15:11) Hives metformin Adverse Reaction (Severe, Verified 08/26/23 15:11) Diarrhea Do you need a note to return to daycare/school/sports/work: No HPI HPI Comments History of Present Illness Details 43 y/o female patient who presents to [facility] in clinic with c/o dysuria for few days now. [facility] Medical History Morbid obesity with BMI of 50.0-59.9, adult PTSD (post-traumatic stress disorder) Anxiety Depression Sciatica Obesity Hypertension Surgical History History of cholecystectomy History of pilonidal cyst History of Family History Mother Dementia Hypertension COPD (chronic obstructive pulmonary disease) Asthma Mental health disorder Diabetes mellitus Father Substance use disorder Liver failure Social History Housing: House Alcohol intake: current Alcohol intake frequency: holidays/special occasions only Alcohol type: hard liquor Patient Tobacco Use Status: Never used Tobacco e-Cigarette/Vaping Use: Never Used Second Hand Smoke Exposure: No service: No Current occupational status: employed Current occupational exposures/hazards: No Cognitive needs: No Hearing needs: No Vision needs: Yes Review of Systems Const All systems reviewed & are unremarkable except as noted in HPI and below Physical Exam Vital Signs: Last Vital Signs Pulse 86 08/26/23 15:11 BP 134/82 08/26/23 15:11 Pulse Ox 98 08/26/23 15:11 BMI result Body Mass Index 48.2 Const General: comfortable and no acute distress Nutritional Appearance: obese morbidly obese Orientation/consciousness: patient oriented x3 Neuro General: patient oriented x3, gait normal and moves all extremities Psych Speech and movement: Normal speech and movement present Results AMB Urinalysis, Automated UA Leukoctes 500 Kang/uL Last Edit by Sj Boyle CMA on 08/26/23 15:4 8 UA Nitrite Negative Last Edit by Sj Boyle CMA on 08/26/23 15:48 UA Urobilinogen 0.2 mg/dL Last Edit by Sj Boyle CMA on 08/26/23 15 :48 UA Protein 0 mg/dL Last Edit by Sj Boyle CMA on 08/26/23 15:48 UA pH 6.0 Last Edit by Sj Boyle CMA on 08/26/23 15:48 UA Blood 25 Hakeem/uL Last Edit by Sj Boyle CMA on 08/26/23 15:48 UA Specific [place] 1.015 Last Edit by Sj Boyle CMA on 08/26/23 15:48 UA Ketone Negative Last Edit by Sj Boyle CMA on 08/26/23 15:48 UA Bilirubin 0 mg/dL Last Edit by Sj Boyle CMA on 08/26/23 15:48 UA Glucose 0 mg/dL Last Edit by Sj Boyle CMA on 08/26/23 15:48 Results Reviewed Results Reviewed: Laboratory Last Values Urine pH (Auto) 6.0 08/26/23 15:43 Specific [place] (Auto) 1.015 08/26/23 15:43 Urine Protein (Auto) 0 mg/dL 08/26/23 15:43 Glucose (UA)(Auto) 0 mg/dL 08/26/23 15:43 Urine Ketones (Auto) Negative 08/26/23 15:43 Urine Blood (Auto) 25 Hakeem/uL 08/26/23 15:43 Urine Nitrite (Auto) Negative 08/26/23 15:43 Urine Bilirubin (Auto) 0 mg/dL 08/26/23 15:43 Urine Urobilinogen (Auto) 0.2 mg/dL 08/26/23 15:43 Leukocyte Esterase (Auto) 500 Kang/uL 08/26/23 15:43 Assessment & Plan Assessment & Plan (1) Cystitis: Code(s): N30.90 - Cystitis, unspecified without hematuria Plan: - Hydrate well with water - Take medication as prescribed. Orders: Orders AMB Urinalysis Automated Today Z13.9 - Encounter for screening, unspecified Medications: New ciprofloxacin HCl 500 mg PO BID 7 days 14 tabs 0RF N30.90 - Cystitis, unspecified without hematuria Coding Level of Care Code Est Pt Level 3 (30531) Diagnoses Cystitis N30.90 Time Spent (min) 15
[2023-08-26 15:11] VITALS: BP 134/82; PULSE 86; O2SAT 98; BMI 48.2
== END 2023-08-26 16:35 | disposition home or self-care (01) ==
PROVIDERS: PCP Internal Medicine; Visit Provider Nurse Practitioner Family
DX: Z13.9 Encounter for screening, unspecified (principal); N30.90 Cystitis, unspecified without hematuria
CPT/HCPCS: 81003; 99213